=== PATIENT | male | born 1955 | race Caucasian/White ===

== ENCOUNTER → 2016-12-08 | Outpatient (CLI) | payer OTHER ==
[~2016-12-08] MED LIST: ACET-749 PO; CICL160A INH; DOCU-94 PO; DOCU100C31 PO; DXM1 PO; EMOL-31 TOP; ENOX120I SQ; FLUC200T PO; INSHRIE SQ; IPRA1AER2 INH; IPRASOL4 INH; LPR25 PO; MCRK20 PO; MELATAB2 PO; MELO15TA10 PO; MELO7.5T5 PO; MRLP17 PO; ONDA4TAB46 PO; ONDA8TAB6 PO; OXYC1TAB3 PO; PRED10TA PO; PRED20TA PO; PRLSR20 PO; PROM1TAB6 PO; VNTHFA/IN INH; WARF4TAB8 PO; WARF5TAB7 PO; WARF7.5T PO
--- NOTE | 2016-12-09 19:56 | DIAGNOSTIC IMAGING REPORT ---
PET/CT CLINICAL HISTORY: Malignant neoplasm of the lung. TECHNIQUE: A PET/CT was performed from the skull base through the upper thighs following intravenous injection of 11.8 mCi of F 18 FDG IV. The injection was performed at 9:29 AM on December 08, 2016 and imaging began at 10:26 AM on December 08, 2016. Unenhanced CT was performed for attenuation correction purposes and anatomic localization. COMPARISON STUDY: Chest CT March or 2016. FINDINGS: Head and neck: Note is made of a 7 mm extra-axial hyperdense lesion along the left aspect of the falx shown on image 9. No enlarged cervical lymph nodes are present. Note is made of focal moderate to marked FDG uptake within the right thyroid lobe with an SUV max of 5.9. This corresponds to a nodule measuring approximately 1.3 cm. There is a peripherally calcified nodule within the right thyroid lobe as well. Chest: Note is made of a left upper lobe perihilar mass that measures 5.7 x 4.4 cm. This mass has marked FDG uptake with an SUV max of 7.9. This mass occludes the left upper lobe bronchus and significantly narrows or occludes the lingular bronchus. Mass encases the left lower lobe pulmonary artery as well as portions of the upper lobe pulmonary artery, better assessed on prior contrast enhanced CT. The mass extends to within approximately 2.3 cm of the addi. Note is made of several pathologic AP window lymph nodes, the largest of which measures 2.8 x 1.7 cm. This node has an SUV max of 6. A left prevascular node measuring 2.2 x 0.9 cm has an SUV max of 3.9 and is also consistent with analilia spread of disease. Moderate emphysema is noted. There is left upper lobe volume loss with hazy opacity. A 5 mm subpleural nodule within the right middle lobe is shown on image 127. There is also a 3 mm subpleural nodule within the right lower lobe shown on image 148. These nodules are likely benign. There are 2 small for evaluation by PET/CT. Abdomen and Pelvis: A 1.3 cm right adrenal nodule has an SUV max of 3.9. There is minimal FDG uptake within the left adrenal gland with an SUV max of 2.3. There is slight nodularity of the left adrenal gland. No additional suspicious FDG uptake is identified within the abdomen or the pelvis. No enlarged lymph nodes are present. Musculoskeletal: No suspicious skeletal uptake is identified. IMPRESSION: 1. Marked FDG uptake within the 5.7 x 4.4 cm left upper lobe perihilar mass which occludes the left upper lobe bronchus and bows the major fissure. Mass extends to within 2.3 cm of the addi and is consistent with a primary bronchogenic carcinoma. 2. Moderate to marked FDG uptake within several aortopulmonary window and left perihilar lymph nodes consistent with analilia spread of disease. 3. Mild FDG uptake within a 1.3 cm right adrenal nodule with an SUV max of 3.9. This finding is indeterminate. This degree of FDG uptake is greater than expected for an adenoma although this remains within the differential. Considerations include metastatic disease and an adrenal adenoma. 4. Moderate FDG uptake with a right lobe thyroid nodule. This can be assessed with a follow-up thyroid ultrasound. 5. 7 mm hyperdense extra-axial left parafalcine lesion which likely reflects a small meningioma. Electronically signed by: Jose Hess M.D. 12/09/2016 7:55 PM Dictated Date/Time: 12/08/2016 11:31 AM
== END | disposition home or self-care (01) ==
LOC: EDBD → C.PET 08:43 → EDBD 08:43
DX: R91.8 Other nonspecific abnormal finding of lung field (principal); R93.8 Abnormal findings on diagnostic imaging of other specified body structures; E04.1 Nontoxic single thyroid nodule; G93.9 Disorder of brain, unspecified

== ENCOUNTER 2016-12-17 08:43 | Day surgery (SDC) | payer OTHER ==
--- NOTE | 2016-12-16 09:49 | PAT Medication Instructions ---
Service Date Dec 16, 2016. Current Home Medication List Albuterol Hfa (Ventolin Hfa), 2 PUFFS INH QID PRN for RN Ciclesonide (Alvesco), 1 PUFF INH BID Docusate Sodium (Docusate Sodium), 1 CAP PO BID Ipratropium-Albuterol (Combivent Respimat), 1 PUFFS INH QID PRN for PRN Meloxicam (Mobic), 15 MG PO BID Medication Instructions For Your Scheduled Surgery Meloxicam (Mobic), 15 MG PO BID (check/per with surgeon for instructions) - Hold the following medications the morning of surgery: Docusate Sodium (Docusate Sodium), 1 CAP PO BID - Take the following medications the morning of surgery with a sip of water: Ipratropium-Albuterol (Combivent Respimat), 1 PUFFS INH QID PRN for PRN (if needed) Ciclesonide (Alvesco), 1 PUFF INH BID Albuterol Hfa (Ventolin Hfa), 2 PUFFS INH QID PRN for RN (if needed and bring with patient to hospital on day of surgery) - Take the following medications as scheduled the night before surgery: Ipratropium-Albuterol (Combivent Respimat), 1 PUFFS INH QID PRN for PRN (if needed) Docusate Sodium (Docusate Sodium), 1 CAP PO BID Ciclesonide (Alvesco), 1 PUFF INH BID Albuterol Hfa (Ventolin Hfa), 2 PUFFS INH QID PRN for RN (if needed) If you have any questions please call us at [phone] or [phone] ( [place]) or [phone]
[2016-12-16 12:54] VITALS: BMI 27.0
[~2016-12-17] VITALS: Ht 182.9 cm; Wt 90.9 kg
[~2016-12-17 08:43] MED LIST changes: -ACET-749 PO; +CLINDAMYCIN PHOS 150 MG/ML 2 ML VIAL ONE; -DOCU-94 PO; -DXM1 PO; -EMOL-31 TOP; -ENOX120I SQ; -FLUC200T PO; -INSHRIE SQ; -IPRASOL4 INH; +LACTATED RINGER'S 1000ML 1,000 ML IV SCH; -LPR25 PO; -MCRK20 PO; -MELATAB2 PO; -MELO15TA10 PO; +MIDAZOLAM HCL 1 MG/ML 2ML VIAL ONE; -MRLP17 PO; -ONDA4TAB46 PO; -ONDA8TAB6 PO; -OXYC1TAB3 PO; -PRED10TA PO; -PRED20TA PO; -PRLSR20 PO; -PROM1TAB6 PO; -WARF4TAB8 PO; -WARF5TAB7 PO; -WARF7.5T PO
[2016-12-17 09:10] VITALS: BP 125/89; PULSE 99; TEMP 36.7; O2SAT 99; Ht 182.9 cm; Wt 90.9 kg
[2016-12-17] MEDS ORDERED: LABETALOL HCL IV 5 MG/ML 20ML IV PRN (09:15)
[2016-12-17] MEDS ORDERED: ONDANSETRON INJ 2 MG/ML 2 ML VIAL IV PRN (09:15)
[2016-12-17] MEDS ORDERED: MEPERIDINE HCL 25 MG/ML CARP IV PRN (09:15)
[2016-12-17] MEDS ORDERED: PHENYLEPHRINE 100MCG/ML 5ML SYR IV PRN (09:15)
[2016-12-17] MEDS ORDERED: EpHEDrine SULFATE INJ 50 MG/ML AMP IV PRN (09:15)
[2016-12-17] MEDS ORDERED: ATROPINE SULFATE 0.1 MG/ML 5ML SYR IV PRN (09:15)
[2016-12-17] MEDS ORDERED: FLUMAZENIL 0.1 MG/1 ML 10 ML VIAL IV PRN (09:15)
[2016-12-17] MEDS ORDERED: NALOXONE HCL 0.4 MG/1 ML VIAL/CARP IV PRN (09:15)
[2016-12-17] MEDS ORDERED: HYDROmorphone INJ 2 MG/ML SYR/VIAL IV PRN (09:15)
[2016-12-17] MEDS ORDERED: CLINDAMYCIN IV 900 MG in DEXTROSE 5% ADD-VANTAGE 100ML 100 ML IV SCH (10:00)
--- NOTE | 2016-12-17 10:29 | Discharge Instructions ---
Discharge Instructions Visit Reason for Visit: Lung Mass, Hx Lung Cancer Discharge Discharge Diagnosis / Problem: Lung Mass, Discharge Goals Goal(s): Learn about illness Activity Recommendations Activity Limitations: resume your previous activity (in 24 hours) Lifting Limitations: none Anesthesia . Post Anesthesia Instructions: If you have had General Anesthesia or IV Sedation: * Do not drive today. * Resume driving when surgeon permits. * Do not make important decisions or sign legal documents today. * Call surgeon for: 1. Temperature elevations greater than 101 degrees F. 2. Uncontrollable pain. 3. Excessive bleeding. 4. Persistent nausea and vomiting. 5. Medication intolerance (nausea, vomiting or rash). * For nausea and vomiting use only clear liquids such as: tea, soda, bouillon until nausea subsides, then gradually increase diet as tolerated. * If you have any concerns or questions, call your surgeon's office. If physician is unavailable and it is an emergency, call 911 or go to the nearest emergency room. . Instructions / Follow-Up Instructions / Follow-Up 1. You may cough up some blood. Call physician if excessive amount noted. 2. Dr. Caicedo will call to discuss your pathology results and further treatment plan. Diet Recommendations Recommended Home Diet: resume previous diet Pending Studies Studies pending at discharge: no Medical Emergencies . Who to Call and When: Medical Emergencies: If at any time you feel your situation is an emergency, please call 911 immediately. . Non-Emergent Contact Non-Emergency issues call your: Surgeon Call Non-Emergent contact if: you have a fever, your pain is not controlled . . "Provider Documentation" section prepared by Tunde Mohamud.
[2016-12-17] MEDS ORDERED: FENTANYL CITRATE INJ 50 MCG/1 ML 2 ML VIAL ONE (11:23)
[2016-12-17] MEDS ORDERED: NEOSTIGMINE METHYLSULFATE 5 MG/5 ML SYR ONE (12:05)
[2016-12-17] MEDS ORDERED: GLYCOPYRROLATE INJ 0.2 MG/ML VIAL ONE ×2 (12:05)
[2016-12-17] MEDS ORDERED: LIDOCAINE HCL 2% 2 ML VIAL (20MG/ML) ONE (12:05)
[2016-12-17] MEDS ORDERED: ROCURONIUM BROMIDE 10 MG/ML 5 ML VIAL ONE (12:05)
[2016-12-17] MEDS ORDERED: ONDANSETRON INJ 2 MG/ML 2 ML VIAL ONE (12:05)
[2016-12-17] MEDS ORDERED: SUCCINYLCHOLINE CHLORIDE 20 MG/ML 10 ML VIAL IV ONE (12:05)
[2016-12-17] MEDS ORDERED: PROPOFOL IV EMULSION 10 MG/ML 20 ML VIAL IV ONE (12:05)
[2016-12-17] MEDS ORDERED: DEXAMETHASONE SOD INJ 4 MG/ML VIAL ONE ×2 (12:05)
[2016-12-17] MEDS ORDERED: PHENYLEPHRINE HCL INJ 10 MG/ML VIAL ONE (12:27)
[2016-12-17] MEDS ORDERED: ALBUTEROL 0.083% NEBU SOLN 3 ML VIAL INH STA (12:52)
[2016-12-17] MEDS: FENTANYL CITRATE INJ 50 MCG/1 ML 2 ML VIAL IV PRN ×2 (12:53→12:58)
--- NOTE | 2016-12-17 13:01 | DIAGNOSTIC IMAGING REPORT ---
CHEST ONE VIEW PORTABLE CLINICAL HISTORY: Pulmonary mass. Status post fiberoptic bronchoscopy and biopsy COMPARISON STUDY: PET/CT scan dated 12/08/2016 FINDINGS: The heart is normal in size. There is a left hilar mass with possible left upper lobe collapse. There is no pneumothorax. The right lung is generally clear.[ IMPRESSION: Left hilar/mediastinal mass with possible left upper lobe collapse. No evidence of pneumothorax. Electronically signed by: Juanpablo Spence M.D. 12/17/2016 12:59 PM Dictated Date/Time: 12/17/2016 12:58 PM
--- NOTE | 2016-12-17 13:15 | Anesthesiology Progress Note ---
Anesthesia Post Op Note Date & Time Dec 17, 2016 at 13:15 Vital Signs Pain Intensity: 0 Vital Signs Past 12 Hours Date Time Temp Pulse Resp B/P Pulse Ox O2 Delivery O2 Flow Rate FiO2 12/17/16 13:05 90 18 124/77 97 Mask 10 12/17/16 12:55 98 15 110/87 99 Mask 10 12/17/16 12:45 103 15 129/87 99 Mask 10 12/17/16 12:37 36.0 98 16 124/87 98 Mask 10 12/17/16 09:10 36.7 99 18 125/89 99 Room Air Notes Mental Status: alert / awake / arousable, participated in evaluation Pt Amnestic to Procedure: Yes Nausea / Vomiting: adequately controlled Pain: adequately controlled Airway Patency, RR, SpO2: stable & adequate BP & HR: stable & adequate Hydration State: stable & adequate Anesthetic Complications: no major complications apparent
[2016-12-17 13:29] VITALS: PULSE 93; O2SAT 90
[2016-12-17 13:40] VITALS: BP 119/74; PULSE 97; TEMP 37.5; O2SAT 93
[2016-12-17 14:10] VITALS: BP 111/74; PULSE 95; TEMP 37; O2SAT 93
[2016-12-17 14:39] VITALS: BP 132/74; PULSE 93; TEMP 37; O2SAT 93
--- NOTE | 2016-12-17 14:57 | OPERATIVE REPORT ---
DATE OF OPERATION: 12/17/2016 PREOPERATIVE DIAGNOSIS: Left hilar mass. POSTOPERATIVE DIAGNOSIS: Carcinoma, left lung. SURGEON: Shan Caicedo MD DUDE WRANGLER: RICHARD Shirley PROCEDURES: 1. Endobronchial ultrasound with biopsy. 2. Fiberoptic bronchoscopy with biopsy. ANESTHESIA: General anesthesia endotracheal intubation. INDICATION FOR PROCEDURE AND FINDINGS: Mr. Gordon is a 61-year-old incarcerated male who had a long history of cigarette smoking and quit about 14 months ago. The patient presented with pneumonia about 3 months ago and underwent 2 course of antibiotics and improved. Then he came back with persistent dyspnea on exertion and underwent a CT scan and was found to have a large left hilar mass. We did a workup on him including a PET scan, which was hypermetabolic. It suggested some left peribronchial nodes. An MRI of his brain showed multiple metastases. We are in need of a tissue biopsy. On 12/17/2016, the patient underwent an uncomplicated endobronchial ultrasound with biopsy. It is unclear whether we are dealing with a nonsmall cell lung carcinoma or a small cell lung carcinoma. I biopsied level 4 nodes and biopsied the mass several times. He had very little in the way of any lymphadenopathy in the level 7 or in the right peritracheal nodes. We did multiple biopsies and it appears that we are dealing with a stage IV carcinoma of the lung. DESCRIPTION OF PROCEDURE: The patient brought to the operating room and laid in supine position. General anesthesia induced and endotracheal intubation was performed. Appropriate timeout had been called and prophylactic antibiotics had been given, the endobronchial ultrasound probe was placed. We had been going down with the knowledge that we from a recent MRI of the brain, we felt we were dealing with stage IV disease, but we needed tissue. I went down and biopsied the left level 4 area, left level 10 area and initially, we did not get a diagnosis. We did get lymphocytes. I then was in the mass itself and did several needle sticks under ultrasound guidance, so we came back with what appeared to be initially perhaps a small cell lung carcinoma. I sent back several biopsies and Dr. Wei Thomas from pathology felt that we saw plenty of tumors and asked to be put these in the cell blocks, so we could do immunohistochemical and perhaps molecular analysis. I did about 8 separate sticks into the mass and put these in formalin. I then removed the endobronchial ultrasound probe and placed the regular fiberoptic bronchoscope. I went down and I irrigated everything out and while there had been some oozing from the bleeding, this had stopped. There did appear to be involvement of the left upper lobe bronchus, which was not surprising. I ended up doing multiple biopsies with forceps in this area. I also did a needle biopsy in this area. We had really no bleeding. At this point, we felt we had enough material and I irrigated out both lung johnson. I did not see any other endobronchial lesions in the left lower lobe bronchus or the right mainstem bronchus, the origin of the right middle lobe, right lower lobe or the right upper lobe. There were no tracheal abnormalities. Eventually, I removed the bronchoscope. He tolerated it well and was extubated in the room. I attest to the content of the Intraoperative Record and any orders documented therein. Any exceptio ns are noted below.
--- NOTE | 2016-12-17 15:51 | PULMONARY FUNCTION TEST ---
PULMONARY FUNCTION TEST Spirometry suggests moderately severe obstructive ventilatory disease. Lung volumes within normal limits. Diffusion capacity. DLCO noted mildly decreased. MTDD
[2017-01-05] MEDS ORDERED: PRED20TA PO (14:19)
[2017-01-05] MEDS ORDERED: DOCU-94 PO (14:19)
[2017-01-06] MEDS ORDERED: PRLSR20 PO (12:50)
[2017-01-06] MEDS ORDERED: FLUC200T PO (12:50)
[2017-07-05] MEDS ORDERED: MRLP17 PO (08:51)
[2017-07-05] MEDS ORDERED: LPR25 PO (08:51)
[2017-07-05] MEDS ORDERED: DXM1 PO (08:51)
[2017-07-05] MEDS ORDERED: MCRK20 PO (08:51)
== END 2016-12-17 15:00 | disposition home or self-care (01) ==
LOC: EDBD → C.ACU 08:43
PROVIDERS: ATTEND Surgery
DX: C34.92 Malignant neoplasm of unspecified part of left bronchus or lung (principal); C7A.8 Other malignant neuroendocrine tumors; J45.909 Unspecified asthma, uncomplicated; J44.9 Chronic obstructive pulmonary disease, unspecified; Z86.19 Personal history of other infectious and parasitic diseases; M19.90 Unspecified osteoarthritis, unspecified site; Z87.891 Personal history of nicotine dependence; Z68.27 Body mass index [BMI] 27.0-27.9, adult; Z98.890 Other specified postprocedural states

== ENCOUNTER 2017-01-19 06:51 | Day surgery (SDC) | payer OTHER ==
[2017-01-13 14:37] VITALS: BMI 27.0
[~2017-01-19] VITALS: Ht 177.8 cm; Wt 89.5 kg
[~2017-01-19 06:51] MED LIST changes: +CEFAZOLIN 2000 MG/60 ML D5W IV SCH; -CLINDAMYCIN PHOS 150 MG/ML 2 ML VIAL ONE; +DOCU-94 PO; -DOCU100C31 PO; -IPRA1AER2 INH; -MELO7.5T5 PO; -MIDAZOLAM HCL 1 MG/ML 2ML VIAL ONE
--- NOTE | 2017-01-19 07:03 | History and Physical ---
History & Physical Date Jan 19, 2017. History of Present Illness The patient is a 61 year old male with history of Lt lung cancer with brain mets for access port. For chemotherapy/ probable radiation. Past Medical/Surgical History Medical Problems: (1) Small cell lung carcinoma Additional History Hepatic Disease: Yes (h/o Hep C) Endocrine Disorder: No Kidney Disease: No Allergies Coded Allergies: No Known Allergies (Unverified , 01/19/17) Home Medications Scheduled Ciclesonide (Alvesco), 1 PUFF INH BID Melatonin (Melatonin Maximum Strengt), 1 TAB PO HS Meloxicam (Mobic), 15 MG PO DAILY Omeprazole (Prilosec), 20 MG PO DAILY Prednisone Tab (Prednisone), 40 MG PO BID Scheduled PRN Albuterol Hfa (Ventolin Hfa), 2 PUFFS INH QID PRN for RN Docusate Sodium (Colace), 1 CAP PO BID PRN for Constipation Physical Examination Skin: warm/dry Eyes: sclerae normal Head: atraumatic Neck: supple Respiratory/Chest: no respiratory distress Cardiovascular: regular rate, rhythm Abdomen / GI: non tender Extremities: normal inspection Neurologic/Psych: alert Diagnosis Lt Lung Cancer with brain metastasis Plan of Treatment For access port
[2017-01-19] MEDS ORDERED: PRLSR20 PO (07:17)
[2017-01-19] MEDS ORDERED: MELO7.5T5 PO (07:17)
[2017-01-19] MEDS ORDERED: PRED10TA PO (07:17)
[2017-01-19] MEDS ORDERED: MELATAB2 PO (07:17)
[2017-01-19 07:18] VITALS: BP 138/99; PULSE 81; TEMP 36.7; O2SAT 95; Ht 177.8 cm; Wt 89.5 kg
[2017-01-19] MEDS ORDERED: FENTANYL CITRATE INJ 50 MCG/1 ML 2 ML VIAL ONE (08:08)
[2017-01-19] MEDS ORDERED: MIDAZOLAM HCL 1 MG/ML 2ML VIAL ONE (08:08)
[2017-01-19] MEDS ORDERED: LIDOCAINE HCL 2% 2 ML VIAL (20MG/ML) ONE (08:12)
[2017-01-19] MEDS ORDERED: PROPOFOL IV EMULSION 10 MG/ML 20 ML VIAL IV ONE (08:12)
[2017-01-19] MEDS ORDERED: HEPARIN SOD (PORCINE) 1000 UNIT/ML 10 ML VIAL ONE (08:14)
[2017-01-19] MEDS ORDERED: LIDOCAINE HCL 1% 20 ML VIAL ONE ×2 (08:14→08:21)
[2017-01-19] MEDS ORDERED: CEFAZOLIN SOD 1 GM VIAL ONE (08:14)
[2017-01-19] MEDS ORDERED: THROMBIN FOR SOLN 20000 UNIT KIT ONE (08:14)
[2017-01-19] MEDS ORDERED: ATROPINE SULFATE 0.1 MG/ML 5ML SYR IV PRN (08:45)
[2017-01-19] MEDS ORDERED: EpHEDrine SULFATE INJ 50 MG/ML AMP IV PRN (08:45)
[2017-01-19] MEDS ORDERED: FENTANYL CITRATE INJ 50 MCG/1 ML 2 ML VIAL IV PRN (08:45)
[2017-01-19] MEDS ORDERED: ONDANSETRON INJ 2 MG/ML 2 ML VIAL IV PRN ×3 (08:45→09:45)
[2017-01-19] MEDS ORDERED: PROMETHAZINE HCL INJ 6.25 MG in SODIUM CHLORIDE 0.9% 50ML 50 ML IV PRN (08:45)
[2017-01-19] MEDS ORDERED: ACET-749 PO (09:14)
--- NOTE | 2017-01-19 09:16 | Discharge Instructions ---
Discharge Instructions Date of Service Jan 19, 2017. Visit Reason for Visit: Small Cell Lung Cancer Discharge Discharge Diagnosis / Problem: A-port placement Discharge Goals Goal(s): Improve disease control Activity Recommendations Activity Limitations: as noted below Shower/Bathe: keep incision dry (for 2 days) Anesthesia . Post Anesthesia Instructions: If you have had General Anesthesia or IV Sedation: * Do not drive today. * Resume driving when surgeon permits. * Do not make important decisions or sign legal documents today. * Call surgeon for: 1. Temperature elevations greater than 101 degrees F. 2. Uncontrollable pain. 3. Excessive bleeding. 4. Persistent nausea and vomiting. 5. Medication intolerance (nausea, vomiting or rash). * For nausea and vomiting use only clear liquids such as: tea, soda, bouillon until nausea subsides, then gradually increase diet as tolerated. * If you have any concerns or questions, call your surgeon's office. If physician is unavailable and it is an emergency, call 911 or go to the nearest emergency room. . Instructions / Follow-Up Instructions / Follow-Up Skin sutures can be removed in two weeks, call Dr. Stockton's office to schedule if needed, [phone] Diet Recommendations Recommended Home Diet: no limitations Pending Studies Studies pending at discharge: no Medical Emergencies . Who to Call and When: Medical Emergencies: If at any time you feel your situation is an emergency, please call 911 immediately. . Non-Emergent Contact Non-Emergency issues call your: Surgeon Call Non-Emergent contact if: you have a fever, temperature is above 101.5, wound has increased redness . . "Provider Documentation" section prepared by Frandy Tabares.
[2017-01-19] MEDS ORDERED: LACTATED RINGER'S 1000ML 1,000 ML IV SCH (09:32)
--- NOTE | 2017-01-19 09:38 | [facility] Post Operative Brief Note ---
Immediate Operative Summary Operative Date Jan 19, 2017. Pre-Operative Diagnosis Small Cell Lung Cancer Post-Operative Diagnosis Same as preoperative Procedure(s) Performed Infusaport Insertion, Left Internal Jugular Surgeon Dr. Mikey Stockton Stock Hanger Surgeon(s) None per surgeon Estimated Blood Loss 10ml Findings placed via Lt int jugular vein Specimens None per surgeon Anesthesia local/ sedation Complication(s) None Disposition Recovery Room / PACU
[2017-01-19] MEDS ORDERED: MoRPHine SULFATE 2 MG/ML CARP IV PRN (09:45)
[2017-01-19] MEDS ORDERED: HYDROCODONE/ACETAMOPHEN 5/325MG TAB PO PRN ×3 (09:45)
--- NOTE | 2017-01-19 10:15 | Anesthesiology Progress Note ---
Anesthesia Post Op Note Date & Time Jan 19, 2017 at 10:15 Vital Signs Pain Intensity: 0 Vital Signs Past 12 Hours Date Time Temp Pulse Resp B/P Pulse Ox O2 Delivery O2 Flow Rate FiO2 01/19/17 10:00 71 19 147/92 99 Mask 10 01/19/17 09:50 83 19 155/101 99 Mask 10 01/19/17 09:41 36.7 86 16 145/81 99 Mask 10 01/19/17 07:18 36.7 81 18 138/99 95 Room Air Notes Mental Status: alert / awake / arousable, participated in evaluation Pt Amnestic to Procedure: Yes Nausea / Vomiting: adequately controlled Pain: adequately controlled Airway Patency, RR, SpO2: stable & adequate BP & HR: stable & adequate Hydration State: stable & adequate Anesthetic Complications: no major complications apparent
--- NOTE | 2017-01-19 10:19 | DIAGNOSTIC IMAGING REPORT ---
SINGLE VIEW CHEST CLINICAL HISTORY: Infusion port placement. FINDINGS: An AP, portable, upright chest radiograph is compared to study dated 12/17/2016 and correlated with chest CT dated 11/17/2016. A left internal jugular central venous infusion port is new from previous. The cardiomediastinal silhouette is unremarkable. Emphysema and chronic interstitial thickening is similar to previous. A left perihilar lung mass has not appreciably changed. This measures at least 6 cm. There is no evidence of airspace consolidation or pleural effusion. No pneumothorax is seen. The bony thorax is grossly intact. IMPRESSION: 1. A left internal jugular central venous infusion port is new from previous. No pneumothorax is identified post procedure. 2. Emphysema and a left perihilar lung mass are similar to previous. 3. There is no airspace consolidation typical for pneumonia or pleural effusion. Electronically signed by: Morris Arreola M.D. 01/19/2017 10:17 AM Dictated Date/Time: 01/19/2017 10:16 AM
[2017-01-19 10:30] VITALS: BP 133/84; PULSE 87; TEMP 36.7; O2SAT 96
[2017-01-19 11:00] VITALS: BP 133/84; PULSE 93; TEMP 36.7; O2SAT 97
--- NOTE | 2017-01-19 12:38 | OPERATIVE REPORT ---
DATE OF OPERATION: 01/19/2017 NAME OF OPERATION: Access port placement. PREOPERATIVE DIAGNOSIS: Lung cancer. POSTOPERATIVE DIAGNOSIS: Same. STAFF SURGEON: Dr. Mikey Stockton. ANESTHESIA: 1% plain lidocaine with sedation. PROCEDURE: The patient was brought into the operating room and placed on the operating table in supine position. A roll was placed between his shoulders. His neck and chest were prepped and draped in usual fashion. After appropriate sedation, using 1% plain lidocaine, skin and subcutaneous tissue over the left deltopectoral groove were anesthetized. Incision made carrying dissection down identifying the cephalic vein, which was too small to use for catheter placement. It was ligated. At this point, I attempted Trendelenburg position with puncture of the left subclavian vein. I was unable to localize the vein adequately; therefore, in Trendelenburg position, I was able to localize the left jugular vein. The catheter was brought up between the 2 incisions. A small incision was made in the neck using 1% plain lidocaine. The dilator and introducer were then passed over the wire, which had been placed in the internal jugular vein under fluoroscopy. The dilator and wire removed. The catheter was then passed down through the introducer. The introducer removed. The catheter then positioned appropriately, aspirated and flushed with heparinized solution. A pocket was fashioned in the chest wall. The catheter attached to the port. Port placed into the pocket and secured to the chest wall using 3-0 Prolene suture. The port was aspirated and flushed with heparinized solution. The port site was irrigated with antibiotic solution. Subcutaneous tissue was reapproximated using 2-0 chromic catgut suture and then the skin reapproximated using 4-0 nylon suture. The patient was transferred to recovery room in stable condition. I attest to the content of the Intraoperative Record and any orders documented therein. Any exceptio ns are noted below.
[2017-07-05] MEDS ORDERED: MCRK20 PO (08:51)
[2017-07-05] MEDS ORDERED: DXM1 PO (08:51)
[2017-07-05] MEDS ORDERED: MRLP17 PO (08:51)
[2017-07-05] MEDS ORDERED: LPR25 PO (08:51)
== END 2017-01-19 11:20 | disposition home or self-care (01) ==
LOC: EDBD → C.ACU 06:51
PROVIDERS: ATTEND Surgery
DX: C34.90 Malignant neoplasm of unspecified part of unspecified bronchus or lung (principal); C79.31 Secondary malignant neoplasm of brain

== ENCOUNTER → 2017-01-27 | Outpatient (CLI) | payer OTHER ==
[~2017-01-27] MED LIST changes: +ACET-749 PO; -CEFAZOLIN 2000 MG/60 ML D5W IV SCH; +DXM1 PO; +EMOL-31 TOP; +ENOX120I SQ; +INSHRIE SQ; +IPRASOL4 INH; -LACTATED RINGER'S 1000ML 1,000 ML IV SCH; +LPR25 PO; +MCRK20 PO; +MELATAB2 PO; +MELO15TA10 PO; +MELO7.5T5 PO; +MRLP17 PO; +ONDA4TAB46 PO; +ONDA8TAB6 PO; +OXYC1TAB3 PO; +PRED10TA PO; +PRLSR20 PO; +PROM1TAB6 PO; +WARF4TAB8 PO; +WARF5TAB7 PO; +WARF7.5T PO
[2017-01-27 07:59] LABS: BLOOD UREA NITROGEN 28 mg/dl (7-18); BUN/CREATININE RATIO 34.5 (10-20); CALCIUM 8.3 mg/dl (8.5-10.1); CARBON DIOXIDE 25 mmol/L (21-32); CHLORIDE 102 mmol/L (98-107); GLUCOSE 233 mg/dl (70-99); POTASSIUM 4.6 mmol/L (3.5-5.1)
[2017-01-27 08:13] LABS: SODIUM 136 mmol/L (136-145)
== END | disposition home or self-care (01) ==
LOC: EDBD → C.LABSPEC 07:42
PROVIDERS: ATTEND Physician Assistant Medical
DX: Z01.89 Encounter for other specified special examinations (principal)

== ENCOUNTER 2017-02-24 10:57 | Observation (INO) | payer OTHER ==
[~2017-02-24] VITALS: Ht 182.9 cm; Wt 82.1 kg
[~2017-02-24 10:57] MED LIST changes: -DXM1 PO; -EMOL-31 TOP; -ENOX120I SQ; -INSHRIE SQ; -IPRASOL4 INH; -LPR25 PO; -MCRK20 PO; -MELO15TA10 PO; -MRLP17 PO; -ONDA4TAB46 PO; -ONDA8TAB6 PO; -OXYC1TAB3 PO; -PROM1TAB6 PO; -WARF4TAB8 PO; -WARF5TAB7 PO; -WARF7.5T PO
[2017-02-24] MEDS ORDERED: INSHRIE SQ (11:32)
[2017-02-24] MEDS ORDERED: IPRASOL4 INH (11:32)
[2017-02-24 12:11] LABS: BASO % 0.3 %; BASO ABS # 0.02 K/uL (0-0.2); COMPLETE YES; EOS % 0.1 %; IG% 0.6 %; LYMPH ABS # 1.89 K/uL (1.2-3.4); MEAN CORPUSCULAR HEMOGLOBIN 31.5 pg (25-34); MEAN CORPUSCULAR HGB CONC 35.8 g/dl (32-36); MEAN PLATELET VOLUME 9.5 fL (7.4-10.4); MONO % 1.9 %; NEUT % 69.1 %; PLATELET COUNT 217 K/uL (130-400); RED BLOOD COUNT 3.75 M/uL (4.7-6.1); WHITE BLOOD COUNT 6.74 K/uL (4.8-10.8)
--- NOTE | 2017-02-24 12:17 | DIAGNOSTIC IMAGING REPORT ---
CHEST ONE VIEW PORTABLE CLINICAL HISTORY: eval for pnea dyspnea COMPARISON STUDY: 01/19/2017 FINDINGS: Considerable improvement in the patient's left perihilar lung mass. Central catheter in superior vena cava. Lungs otherwise are generally clear. Chronic bibasilar interstitial prominence is noted. IMPRESSION: Improved exam with no acute process on the current study. Electronically signed by: See Garcia M.D. 02/24/2017 12:15 PM Dictated Date/Time: 02/24/2017 12:14 PM
[2017-02-24 12:20] LABS: BUN/CREATININE RATIO 14.7 (10-20); CALCIUM 9.1 mg/dl (8.5-10.1); CREATININE 0.88 mg/dl (0.60-1.40); INR 0.9 (0.9-1.1); PARTIAL THROMBOPLASTIN RATIO 0.9
[2017-02-24 12:21] LABS: POINT OF CARE TROPONIN I 0.01 ng/ml (0-0.045)
[2017-02-24] MEDS ORDERED: OPTIRAY 320 IV PRN (13:00)
--- NOTE | 2017-02-24 13:43 | DIAGNOSTIC IMAGING REPORT ---
CT ANGIOGRAM OF THE CHEST CLINICAL HISTORY: Lung carcinoma. Shortness of breath. COMPARISON STUDY: Chest x-ray dated 03-11, outside chest CT dated 11/17/2016 TECHNIQUE: Following the IV administration of 92 mL of Optiray-320, CT angiogram of the thorax was performed from the thoracic inlet to the lung bases utilizing the pulmonary embolus protocol. Images are reviewed in the axial, sagittal, and coronal planes. IV contrast was administered without complication. MIP imaging was performed. CT DOSE: 425.01 mGy.cm FINDINGS: There is new right adrenal gland thickening. There is a 12 mm there is mild left hilar adenopathy. There was no evidence of thoracic aortic dilatation. There is a small right lower lobe pulmonary artery filling defect indicative of an acute embolus. No pleural effusions are visualized. There is pulmonary emphysema. There is been interval decrease in the size of the left perihilar mass which encases the left upper lobe pulmonary artery. This currently measures 3 cm in diameter. There are left para mediastinal atelectatic changes. There is a stable 5 mm subpleural right middle lobe pulmonary nodule. IMPRESSION: 1. Small acute right lower lobe pulmonary embolus 2. Interval decrease in the size of the left perihilar mass 3. Interval development of right adrenal gland thickening Electronically signed by: Juanpablo Spence M.D. 02/24/2017 1:42 PM Dictated Date/Time: 02/24/2017 1:34 PM
[2017-02-24] MEDS ORDERED: ALBUTEROL HFA 8 GM INHALER INH PRN (14:45)
[2017-02-24] MEDS ORDERED: ACETAMINOPHEN 325 MG TAB PO PRN (14:45)
[2017-02-24] MEDS ORDERED: MAGNESIUM HYDROXIDE SUSP 30 ML UDC PO PRN (14:45)
[2017-02-24] MEDS ORDERED: DOCUSATE SODIUM 100 MG CAP PO PRN (14:45)
[2017-02-24] MEDS ORDERED: POLYETHYLENE (MIRALAX) 17 GM PACK PO PRN (14:45)
[2017-02-24] MEDS ORDERED: ALUMINUM/MAGNESIUM/SIMETH (MAALOX MAX) 30 ML UDC PO PRN (14:45)
[2017-02-24] MEDS ORDERED: IV FLUIDS COMPLETED PRN (15:30)
[2017-02-24 16:22] VITALS: BP 137/91; PULSE 115; TEMP 36.3; O2SAT 99
--- NOTE | 2017-02-24 16:53 | EMERGENCY ROOM VISIT NOTE ---
History Report prepared by Alfonso: Elsi Lui Under the Supervision of: Dr. Jeremy Quinonez M.D. First contact with patient: 11:23 Chief Complaint: CHEST PAIN Stated Complaint: CHEST PAIN Nursing Triage Summary: Patient arrives via ALS from [facility] with complaints of intermittent chest pain. 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 Last radiation was 4-5 weeks ago. Patient was tappered off oral prednisone and was discontinued on 02/15/17. Patient complaining of SOB, CP rating 6-8/10, fatigue, dizzy. EMS reported initial BP was 60's/40's, no nitro/aspirin admin by ems. Patient unable to take aspirin due to it makes stomach upset. History of Present Illness The patient is a 61 year old male who presents to the Emergency Room via ALS from [facility] with complaints of intermittent chest pain that began on February 15. He currently rates his discomfort as a 6/10 in severity. The patient states that he is currently undergoing treatment for small cell lung cancer with mets to his brain. He states that his chest pain is located in the middle of his chest and around his diaphragm, describing his discomfort as a pressure. The patient additionally associates shortness of breath with his symptoms, and notes that for the past few days he has had an "upset stomach." He states that he has had this happen in the past when he was tapered off Prednisone. The patient states that his Prednisone was stopped on 02/15 and that is when his pain began. He notes that intermittently he has experienced pain in his calves, noting that they lock up. The patient denies any swelling in his legs. He states that he has been feeling weak and fatigued, noting a lack of energy. The patient states that typically the Prednisone has helped to alleviate his pain. He states that he was diagnosed with the cancer in October , noting that his mass is 5.5-6 cm in diameter in his lung. The patient denies any history of PEs or hypertension. He states that he has been treated for hyperglycemia due to his prednisone use. EMS reports that the patient's initial blood pressure was in 60 mmHg. Source of History: patient Onset: February 15 Position: chest Symptom Intensity: 6/10 Quality: pressure Timing: intermittent Associated Symptoms: + SOB Note: Associated Symptoms: "upset stomach," calves locking up Review of Systems See HPI for pertinent positives & negatives. A total of 10 systems reviewed and were otherwise negative. Past Medical & Surgical Medical Problems: (1) Pulmonary embolism (2) Small cell lung carcinoma Family History No pertinent family history stated. Social History Smoking Status: Former Smoker Marital Status: single Housing Status: other ([facility]) Current/Historical Medications Scheduled Ciclesonide (Alvesco), 1 PUFF INH BID Insulin Human Regular (Humulin R), SQ UD Ipratropium-Albuterol (Duoneb), 1 TREATMENT INH Q4H Meloxicam (Mobic), 15 MG PO DAILY Omeprazole (Prilosec), 20 MG PO DAILY Scheduled PRN Albuterol Hfa (Ventolin Hfa), 2 PUFFS INH QID PRN for RN Docusate Sodium (Colace), 100 MG PO BID PRN for Constipation Allergies Coded Allergies: No Known Allergies (Unverified , 02/24/17) Physical Exam Vital Signs Date Time Temp Pulse Resp B/P Pulse Ox O2 Delivery O2 Flow Rate FiO2 02/24/17 14:23 106 18 150/101 99 Room Air 02/24/17 14:16 88 02/24/17 12:44 106 16 119/81 99 Room Air 02/24/17 11:58 100 Room Air 02/24/17 11:08 36.9 97 18 140/82 100 Room Air 02/24/17 11:08 100 Room Air 02/24/17 11:08 100 Room Air 02/24/17 11:07 94 Physical Exam Constitutional: Vital signs reviewed. Normotensive. Well-appearing. Eyes: Pupils are equal round reactive to light. Conjunctiva are noninjected. ENT: Pharynx is clear without erythema or exudate. Mucous membranes are moist. Neck supple without meningeal signs. Respiratory: Clear to auscultation bilaterally. Breath sounds are equal bilaterally. Cardiovascular: Regular rate and rhythm. No rubs or gallops. GI: Soft, nondistended and nontender. Bowel sounds are present. Musculoskeletal: No peripheral edema. No lower extremity tenderness. Integumentary: No cyanosis. Neurological: The patient is awake and alert. No focal deficits. Psychiatric: Normal affect. Medical Decision & Procedures ER Provider Diagnostic Interpretation: Radiology results as stated below per my review and the radiologist's interpretation: CHEST ONE VIEW PORTABLE CLINICAL HISTORY: eval for pnea dyspnea COMPARISON STUDY: 01/19/2017 FINDINGS: Considerable improvement in the patient's left perihilar lung mass. Central catheter in superior vena cava. Lungs otherwise are generally clear. Chronic bibasilar interstitial prominence is noted. IMPRESSION: Improved exam with no acute process on the current study. Electronically signed by: See Garcia M.D. 02/24/2017 12:15 PM Dictated Date/Time: 02/24/2017 12:[address] ANGIOGRAM OF THE CHEST CLINICAL HISTORY: Lung carcinoma. Shortness of breath. COMPARISON STUDY: Chest x-ray dated 03-11, outside chest CT dated 11/17/2016 TECHNIQUE: Following the IV administration of 92 mL of Optiray-320, CT angiogram of the thorax was performed from the thoracic inlet to the lung bases utilizing the pulmonary embolus protocol. Images are reviewed in the axial, sagittal, and coronal planes. IV contrast was administered without complication. MIP imaging was performed. CT DOSE: 425.01 mGy.cm FINDINGS: There is new right adrenal gland thickening. There is a 12 mm there is mild left hilar adenopathy. There was no evidence of thoracic aortic dilatation. There is a small right lower lobe pulmonary artery filling defect indicative of an acute embolus. No pleural effusions are visualized. There is pulmonary emphysema. There is been interval decrease in the size of the left perihilar mass which encases the left upper lobe pulmonary artery. This currently measures 3 cm in diameter. There are left para mediastinal atelectatic changes. There is a stable 5 mm subpleural right middle lobe pulmonary nodule. IMPRESSION: 1. Small acute right lower lobe pulmonary embolus 2. Interval decrease in the size of the left perihilar mass 3. Interval development of right adrenal gland thickening Electronically signed by: Juanpablo Spence M.D. 02/24/2017 1:42 PM Dictated Date/Time: 02/24/2017 1:34 PM Laboratory Results 02/24/17 11:38 Red Blood Count 3.75, Mean Corpuscular Volume 88.0, Mean Corpuscular Hemoglobin 31.5, Mean Corpuscular Hemoglobin Concent 35.8, Mean Platelet Volume 9.5, Neutrophils (%) (Auto) 69.1, Lymphocytes (%) (Auto) 28.0, Monocytes (%) (Auto) 1.9, Eosinophils (%) (Auto) 0.1, Basophils (%) (Auto) 0.3, Neutrophils # (Auto) 4.65, Lymphocytes # (Auto) 1.89, Monocytes # (Auto) 0.13, Eosinophils # (Auto) 0.01, Basophils # (Auto) 0.02 02/24/17 11:38 Test 02/24/17 11:38 02/24/17 12:00 White Blood Count 6.74 K/uL (4.8-10.8) Red Blood Count 3.75 M/uL (4.7-6.1) Hemoglobin 11.8 g/dL (14.0-18.0) Hematocrit 33.0 % (42-52) Mean Corpuscular Volume 88.0 fL (80-100) Mean Corpuscular Hemoglobin 31.5 pg (25-34) Mean Corpuscular Hemoglobin Concent 35.8 g/dl (32-36) Platelet Count 217 K/uL (130-400) Mean Platelet Volume 9.5 fL (7.4-10.4) Neutrophils (%) (Auto) 69.1 % Lymphocytes (%) (Auto) 28.0 % Monocytes (%) (Auto) 1.9 % Eosinophils (%) (Auto) 0.1 % Basophils (%) (Auto) 0.3 % Neutrophils # (Auto) 4.65 K/uL (1.4-6.5) Lymphocytes # (Auto) 1.89 K/uL (1.2-3.4) Monocytes # (Auto) 0.13 K/uL (0.11-0.59) Eosinophils # (Auto) 0.01 K/uL (0-0.5) Basophils # (Auto) 0.02 K/uL (0-0.2) RDW Standard Deviation 47.5 fL (36.4-46.3) RDW Coefficient of Variation 15.0 % (11.5-14.5) Immature Granulocyte % (Auto) 0.6 % Immature Granulocyte # (Auto) 0.04 K/uL (0.00-0.02) Prothrombin Time 10.0 SECONDS (9.0-12.0) Prothromb Time International Ratio 0.9 (0.9-1.1) Activated Partial Thromboplast Time 24.3 SECONDS (21.0-31.0) Partial Thromboplastin Ratio 0.9 Anion Gap 7.0 mmol/L (3-11) Est Creatinine Clear Calc Drug Dose 99.2 ml/min Estimated GFR () 109.0 Estimated GFR (Non- 94.0 BUN/Creatinine Ratio 14.7 (10-20) Calcium Level 9.1 mg/dl (8.5-10.1) Bedside D-Dimer 435 ng/mlFEU (0-450) Bedside Troponin I 0.010 ng/ml (0-0.045) Laboratory results as reviewed by me. ECG Indication: chest pain Rate (beats per minute): 98 Rhythm: sinus rhythm Findings: PVC, T-wave inversion (lead 1 and AVL) ED Course 1127: The patient was evaluated in room C10. A complete history and physical exam was performed. 1348: I reevaluated the patient and he is resting comfortably. I discussed the exam findings with him and the guards and I discussed the treatment plan. They all verbalized complete understanding and agreement. He will be evaluated for further treatment. 1414: I discussed the patients case with YASMANY Lorenzo. He is going to evaluate the patient for further treatment. Medical Decision This is a 61-year-old male who presents with chest pain. Differential diagnosis includes DVT, pulmonary embolism, pneumonia, pneumothorax, acute coronary syndrome, pleurisy. I did perform a limited focused review of portions of the patient's old chart on the electronic medical record. The patient has had no recent pertinent visits to this hospital. I did evaluate the patient as noted above. IV access was established. The patient was placed on a continuous cardiac rn. I did order and personally review the patient's 12-lead EKG and chest x-ray as described above. I did order and review the patient's blood work as noted in the electronic medical record. Troponin and d-dimer are negative. The patient does have a history of carcinoma. He is intermittently tachycardic here and had hypotension prior to arrival. Despite the negative d-dimer I was concerned about pulmonary embolism. I did order a CT of the chest. I did review the images myself as well as the radiology report as described above. He does have a right-sided lower lobe pulmonary embolus. I did discuss the test results with the patient. I did discuss the case with the hospitalist and casework specialist for further care and evaluation. Consults Time Called: 1350 Consulting Physician: YASMANY Lorenzo Returned Call: [phone] I discussed the patients case with YASMANY Lorenzo. He is going to evaluate the patient for further treatment. Impression Primary Impression: Pulmonary embolus, right Scribe Attestation The scribe's documentation has been prepared under my direct and personally reviewed by me in its entirety. I confirm that the note above accurately reflects all work, treatment, procedures, and medical decision making performed by me. Departure Information Dispostion Being Evaluated By Hospitalist Referrals Rito ROSA (PCP)
[2017-02-24] MEDS: SODIUM CHLOR 0.45% + 20MEQ KCL 1,000 ML IV SCH (17:02)
[2017-02-24] MEDS: ONDANSETRON INJ 2 MG/ML 2 ML VIAL IV PRN (17:02)
[2017-02-24 17:15] VITALS: PULSE 96; O2SAT 99
[2017-02-24] MEDS: ALBUT/IPRATROP 3MG/0.5MG NEB 3 ML VIAL INH SCH ×2 (17:15→19:22)
[2017-02-24] MEDS ORDERED: MoRPHine SULFATE 4 MG/ML 1 ML CARP\\VIAL IV PRN (18:45)
[2017-02-24] MEDS: ENOXAPARIN 80 MG/0.8 ML SYR SQ SCH (18:56)
[2017-02-24 19:14] VITALS: BMI 24.5
[2017-02-24 19:23] VITALS: PULSE 117; O2SAT 98
[2017-02-24] MEDS: MAGNESIUM OXIDE 400 MG TAB PO SCH (20:00)
--- NOTE | 2017-02-24 22:02 | History and Physical ---
History & Physical Date & Time of Service: February 24, 2017 at 21:59 Chief Complaint: Pulmonary Embolism Primary Care Physician: Rito ROSA Social History Smoking Status: Former Smoker Marital Status: single Allergies Coded Allergies: No Known Allergies (Unverified , 02/24/17) Home Medications Scheduled Ciclesonide (Alvesco), 1 PUFF INH BID Insulin Human Regular (Humulin R), SQ UD Ipratropium-Albuterol (Duoneb), 1 TREATMENT INH Q4H Meloxicam (Mobic), 15 MG PO DAILY Omeprazole (Prilosec), 20 MG PO DAILY Scheduled PRN Albuterol Hfa (Ventolin Hfa), 2 PUFFS INH QID PRN for RN Docusate Sodium (Colace), 100 MG PO BID PRN for Constipation Physical Exam Vital Signs Date Time Temp Pulse Resp B/P Pulse Ox O2 Delivery O2 Flow Rate FiO2 02/24/17 19:23 117 16 98 Room Air 02/24/17 19:14 Room Air 02/24/17 17:15 96 16 99 Room Air 02/24/17 16:22 36.3 115 20 137/91 99 Room Air 02/24/17 14:23 106 18 150/101 99 Room Air 02/24/17 14:16 88 02/24/17 12:44 106 16 119/81 99 Room Air 02/24/17 11:58 100 Room Air 02/24/17 11:08 36.9 97 18 140/82 100 Room Air 02/24/17 11:08 100 Room Air 02/24/17 11:08 100 Room Air 02/24/17 11:07 94 Diagnostics Laboratory Results Results Past 24 Hours Test 02/24/17 11:38 02/24/17 12:00 Range/Units White Blood Count 6.74 4.8-10.8 K/uL Red Blood Count 3.75 4.7-6.1 M/uL Hemoglobin 11.8 14.0-18.0 g/dL Hematocrit 33.0 42-52 % Mean Corpuscular Volume 88.0 80-100 fL Mean Corpuscular Hemoglobin 31.5 25-34 pg Mean Corpuscular Hemoglobin Concent 35.8 32-36 g/dl Platelet Count 217 130-400 K/uL Mean Platelet Volume 9.5 7.4-10.4 fL Neutrophils (%) (Auto) 69.1 % Lymphocytes (%) (Auto) 28.0 % Monocytes (%) (Auto) 1.9 % Eosinophils (%) (Auto) 0.1 % Basophils (%) (Auto) 0.3 % Neutrophils # (Auto) 4.65 1.4-6.5 K/uL Lymphocytes # (Auto) 1.89 1.2-3.4 K/uL Monocytes # (Auto) 0.13 0.11-0.59 K/uL Eosinophils # (Auto) 0.01 0-0.5 K/uL Basophils # (Auto) 0.02 0-0.2 K/uL RDW Standard Deviation 47.5 36.4-46.3 fL RDW Coefficient of Variation 15.0 11.5-14.5 % Immature Granulocyte % (Auto) 0.6 % Immature Granulocyte # (Auto) 0.04 0.00-0.02 K/uL Prothrombin Time 10.0 9.0-12.0 SECONDS Prothromb Time International Ratio 0.9 0.9-1.1 Activated Partial Thromboplast Time 24.3 21.0-31.0 SECONDS Partial Thromboplastin Ratio 0.9 Sodium Level 137 136-145 mmol/L Potassium Level 4.0 3.5-5.1 mmol/L Chloride Level 104 98-107 mmol/L Carbon Dioxide Level 26 21-32 mmol/L Anion Gap 7.0 3-11 mmol/L Blood Urea Nitrogen 13 7-18 mg/dl Creatinine 0.88 0.60-1.40 mg/dl Est Creatinine Clear Calc Drug Dose 99.2 ml/min Estimated GFR () 109.0 Estimated GFR (Non- 94.0 BUN/Creatinine Ratio 14.7 10-20 Random Glucose 239 70-99 mg/dl Calcium Level 9.1 8.5-10.1 mg/dl Bedside D-Dimer 435 0-450 ng/mlFEU Bedside Troponin I 0.010 0-0.045 ng/ml Microbiology Results 02/24/17 MRSA DNA Surveillance Screen - Final, Complete Specimen Negative for MRSA by DNA Probe Impression Assessment and Plan admit #[id number] Advanced Directives Existing Living Will: No Existing Power of Account Executive [employer]: No VTE Prophylaxis VTE Risk Assessment Done? Y/N: Yes Risk Level: Moderate
--- NOTE | 2017-02-24 22:43 | HISTORY & PHYSICAL EXAMINATION ---
DATE OF ADMISSION: 02/24/2017 CHIEF COMPLAINT: Chest pain and weakness. HISTORY OF PRESENT ILLNESS: The patient is a 61-year-old male sent over from [facility]. He was apparently feeling weak, having chest pain and was hypotensive, reportedly, as low as 60 systolic, although I can only find reference of this, not the actual recording of vital signs. He presented to the ER acutely with low blood pressure as well as feeling chest pain and shortness of breath. He also had a number of ongoing complaints related to the cancer and chemotherapy as far as just generally feeling weak, rundown, fatigued, having leg cramps off and on, but acutely, no other clear complaints. His had a chest CT that showed a small right-sided PE, likely culprit for his acute symptoms. We were asked to evaluate him further. Given how stable his vitals were, by the time I was seeing him, I called the [facility] to see if they felt comfortable with ongoing management of his PE at the [facility]. Given the low blood pressures, they asked if we would please watch him overnight to ensure he is no longer hypotensive and then probably could move forward at the [facility] by tomorrow. REVIEW OF SYSTEMS: Otherwise negative, except for as above. PAST MEDICAL HISTORY: Lung cancer with brain metastasis, small cell. PAST SURGICAL HISTORY: Includes a port placement and a pacemaker, hemorrhoidectomy, oral surgery, liver biopsy and excision of a soft tissue tumor on the subcutaneous tissue of his back. FAMILY HISTORY: He had a grandfather, who of lung cancer, but not until about 94, a fraternal grandfather passed of an RI in his 50s, mom at age 78, apparently with stroke complications, dad at 64 of pancreatic cancer. He has no children. SOCIAL HISTORY: He is a former smoker, has about 40+ pack years, quitting in 2014. He is currently incarcerated and single. Prior substance abuse as well. ALLERGIES: No known drug allergies. HE IS ALLERGIC TO WASPS. MEDICATIONS: Ventolin 2 puffs q.i.d. p.r.n. shortness of breath or wheeze, Alvesco 1 puff b.i.d., Colace 100 mg b.i.d. p.r.n. constipation, Humulin R subQ as directed, DuoNebs q. 4 hours, Mobic 15 mg daily, Prilosec 20 mg daily. PHYSICAL EXAMINATION: VITAL SIGNS: Temp 36.9, pulse 97, respiratory rate 18, blood pressure 140/82, 100% on room air. GENERAL: He is awake, alert, oriented x3, somewhat anxious, but no acute distress. HEENT: Normocephalic, atraumatic. Mucous membranes are moist. CARDIOVASCULAR: Regular without rubs, murmurs or gallops. LUNGS: Clear to auscultation bilaterally. No rales, rhonchi or wheezes, with good effort. ABDOMEN: Soft, nondistended, nontender, no masses or organomegaly. EXTREMITIES: Without cyanosis, clubbing or edema. No calf tenderness. SKIN: Shows no rashes, no pallor or icterus. MUSCULOSKELETAL: Shows normal muscle tone. No significant calf hypertonicity in the areas that he notes cramps. NEUROLOGIC: Cranial nerves II-XII to be grossly intact. Gross motor and sensory are intact. MENTAL STATE: Shows good recent and remote recall. Fair judgment and insight; slightly anxious mood and affect. LABS AND DIAGNOSTICS: CBC shows a white count of 6.74, hemoglobin 11.8, platelets 217. Basic metabolic panel with sodium 137, potassium 4, chloride 104, CO2 26, BUN 13, creatinine 0.88, calcium 9.1, glucose 239. Troponin of 0.01. PT 10, PTT 24.3. D-dimer 435. Chest x-ray showed improvement compared to his previous exam about 8 weeks ago, chronic bibasilar interstitial prominence. His chest CT showed a small acute right lower lobe pulmonary embolus, decrease in size of his left perihilar mass and interval development of right adrenal gland thickening. ASSESSMENT AND PLAN: 1. Acute pulmonary embolism. This appears to be the culprit for his chest pain and shortness of breath. Fortunately, it seems fairly mild and he is not hypoxic or hypotensive now. Discussed outpatient management at the [facility], but because of his prior questionable hypotension, certainly, it does appear reasonable to keep him overnight and follow. Given the active malignancy setting, we will utilize Lovenox mg/kg subQ q. 12h., as the anticoagulant of choice and continue to follow and maintain supportive care. 2. Hypotension. It is unclear exactly what or if this was even real. It appears to have been very transient, resolved really without any specific intervention. Given that he has had poor p.o. intake, we will rehydrate him with IV fluids and continue to follow his blood pressure. Certainly, given that he is tachycardic, it could be that he is a bit volume depleted and we will follow with his IV fluids. 2. Anxiety. This also may be a bit of the culprit for the tachycardia. We will try to utilize supportive care well, rehydrate him and follow closely. 3. Lung cancer with metastasis to the brain . Ongoing outpatient chemotherapy and radiation, ongoing management per his oncology team. 4. Mild anemia. Follow. 5. Hyperglycemia. He notes prior to being on the prednisone, he never had diabetes. However, certainly, being a quite 62-year-old [place] male and given the degree of his sugars, now that he is still off the prednisone, we will check an A1c. [facility]
[2017-02-25 00:05] VITALS: BP 129/91; PULSE 103; TEMP 36.7; O2SAT 96
[2017-02-25] MEDS: ONDANSETRON INJ 2 MG/ML 2 ML VIAL IV PRN ×2 (00:39→07:27)
[2017-02-25] MEDS: SODIUM CHLOR 0.45% + 20MEQ KCL 1,000 ML IV SCH (05:44)
[2017-02-25] MEDS: ENOXAPARIN 80 MG/0.8 ML SYR SQ SCH (05:45)
[2017-02-25 06:59] VITALS: BP 164/97; PULSE 91; TEMP 36.6; O2SAT 96
[2017-02-25 07:13] VITALS: PULSE 105; O2SAT 98
[2017-02-25] MEDS: ALBUT/IPRATROP 3MG/0.5MG NEB 3 ML VIAL INH SCH ×3 (07:13→14:37)
[2017-02-25 07:57] LABS: ESTIMATED AVERAGE GLUCOSE 301 mg/dl; HA1C FLAG Normal (Normal)
[2017-02-25] MEDS ORDERED: MELOXICAM 7.5 MG TAB PO SCH (08:00)
[2017-02-25] MEDS ORDERED: PANTOprazole SOD 40 MG TAB PO SCH (08:00)
[2017-02-25] MEDS: MAGNESIUM OXIDE 400 MG TAB PO SCH (08:17)
[2017-02-25 09:55] LABS: HEMATOCRIT 33.7 % (42-52); MEAN CELL VOLUME 88.2 fL (80-100); MEAN CORPUSCULAR HEMOGLOBIN 31.2 pg (25-34); MEAN CORPUSCULAR HGB CONC 35.3 g/dl (32-36); MEAN PLATELET VOLUME 9.3 fL (7.4-10.4); PLATELET COUNT 194 K/uL (130-400); RED BLOOD COUNT 3.82 M/uL (4.7-6.1); WHITE BLOOD COUNT 6.09 K/uL (4.8-10.8)
[2017-02-25 10:54] LABS: BUN/CREATININE RATIO 6.8 (10-20); CALCIUM 8.8 mg/dl (8.5-10.1); CREATININE 0.93 mg/dl (0.60-1.40); POTASSIUM 4.3 mmol/L (3.5-5.1)
[2017-02-25 11:00] VITALS: Ht 182.9 cm; Wt 82.1 kg
[2017-02-25 11:15] VITALS: BP 135/91; PULSE 91
[2017-02-25] MEDS ORDERED: ENOX120I SQ (12:22)
[2017-02-25] MEDS ORDERED: ONDA4TAB46 PO (12:22)
--- NOTE | 2017-02-25 12:42 | Discharge Instructions ---
Discharge Instructions Date of Service February 25, 2017. Admission Reason for Admission: Pulmonary Embolism Discharge Discharge Diagnosis / Problem: Pulmonary embolism Discharge Goals Goal(s): Decrease discomfort, Improve function, Diagnostic testing, Therapeutic intervention Activity Recommendations Activity Level: Up Ad Eileen . Additional Information Patient informed of condition: Yes Advance Directives: No DNR: No Level of Care: Other ([facility]) Communicable Disease: No Prognosis: Stable Instructions / Follow-Up Instructions / Follow-Up The patient was admitted to the hospital after presenting with chest pain and weakness. He was found to have a small right-sided pulmonary embolism. [facility] states that they are comfortable managing the pulmonary embolism there, however, they wanted the patient to be observed overnight due to reported hypotension. The patient remained stable overnight and actually has reported hypertension. Due to his elevated blood sugars, the patient's hemoglobin A1c was checked which was elevated at 12.1. The patient was on prednisone for about a month and a half and had just stopped recently prior to admission, but there is likely underlying diabetes to account for such an elevated A1c, not just steroid use alone. Medications: *Lovenox 1 mg/kg (120 mg total) subcutaneous daily. Patient will need to be on this indefinitely due to his history of malignancy and resultant hypercoagulable state. *Zofran 4 mg PO q6h prn nausea *Continue home medications as prescribed Due to markedly elevated hemoglobin A1c, it is recommended the patient be started on maintenance medications for his underlying diabetes mellitus type 2, such as metformin, as opposed to using a sliding scale of insulin as needed. He will need to be seen regularly to manage his diabetes, again preferably starting with oral agents first. Follow up: *Patient should be followed up within 1 week of discharge regarding improvement of symptoms, and then followed routinely to manage diabetes. Please seek medical attention if you experience fevers, chills, sweats, chest pain, shortness of breath, nausea, vomiting, numbness or tingling, lightheadedness, or loss of consciousness. Current Hospital Diet Patient's current hospital diet: Regular Diet Discharge Diet Recommended Diet: Diabetes Type 2 Diet Procedures Procedures Performed: CTA--positive for right sided pulmonary embolism Pending Studies Studies pending at discharge: no Laboratory Results Hemoglobin A1c Test 02/24/17 11:38 Range/Units Estimated Average Glucose 301 mg/dl Hemoglobin A1c 12.1 H 4.5-5.6 % Medical Emergencies . Who to Call and When: Medical Emergencies: If at any time you feel your situation is an emergency, please call 911 immediately. . Non-Emergent Contact Non-Emergency issues call your: Primary Care Provider Call Non-Emergent contact if: you have a fever, your pain is not controlled, your pain is worsening, your pain is unusual for you, your pain is concerning you, you have any medication questions . Past History Medical & Surgical History: (1) Pulmonary embolus, right . "Provider Documentation" section prepared by Sonia Valdes. . Core Measure Problem Core Measures: VTE VTE Core Measures Date of VTE Diagnosis: February 24, 2017 Time of VTE Diagnosis: 13:34 Reason no anticoag overlap I/P: Treatment provided - N/A Reason no anticoag overlap @DC: Treatment provided - N/A
[2017-02-25 13:11] VITALS: BP 135/91; TEMP 36.6; O2SAT 98
--- NOTE | 2017-02-25 14:26 | Discharge Summary ---
Discharge Summary Date of Service February 25, 2017. (Sonia Valdes .JENNA) Discharge Summary Admission Date: February 24, 2017 at 14:43 Discharge Date: February 25, 2017 Discharge Disposition: Personal care ([facility]) Principal Diagnosis: Right pulmonary embolism Procedures: CTA: IMPRESSION: 1. Small acute right lower lobe pulmonary embolus 2. Interval decrease in the size of the left perihilar mass 3. Interval development of right adrenal gland thickening (Sonia Valdes PA-C) Medication Reconciliation New Medications: Enoxaparin (Lovenox) 120 Mg/0.8 Ml Inj 120 MG SQ DAILY for 30 Days, #30 SYR Ondansetron Hcl (Zofran) 4 Mg Tab 4 MG PO Q6H PRN for Nausea for 30 Days, #120 TAB Continued Medications: Albuterol Hfa (Ventolin Hfa) 200 Puffs/89142 Mcg Aers 2 PUFFS INH QID PRN for RN, #1 INHALER Ciclesonide (Alvesco) 160 Mcg/Act Aer 1 PUFF INH BID Docusate Sodium (Colace) 100 Mg Cap 100 MG PO BID PRN for Constipation Insulin Human Regular (Humulin R) 100 Units/Ml Susp SQ UD Ipratropium-Albuterol (Duoneb) 3 Ml Nebu 1 TREATMENT INH Q4H, INHA Meloxicam (Mobic) 7.5 Mg Tab 15 MG PO DAILY, TAB Omeprazole (Prilosec) 20 Mg Capcr 20 MG PO DAILY, CAP Discharge Exam Patient claims of shortness breath and dyspnea on exertion, although he states that these are somewhat improved from yesterday. He also complains of nausea that is worse after eating, as well as epigastric pain that is currently a 6/10 dull pain. This pain sometimes radiates up into the chest, particularly after eating. Patient also notes some tingling in his fingers and the bottoms of his feet. The patient denies fevers, chills, sweats, chest pain, palpitations, claudication, cough, wheezing, vomiting, dysuria, hematuria, urinary retention, paralysis, weakness. Review of Systems: Constitutional: No chills, No fever, No sweats Eyes: No diplopia, No eye pain, No worsening of vision ENT: No hearing loss, No sore throat, No trouble swallowing Respiratory: + dyspnea on exertion, + shortness of breath, No cough, No wheezing Cardiovascular: No chest pain, No claudication, No palpitations Abdomen: + nausea, + pain, No vomiting Musculoskeletal: No calf pain, No joint pain, No muscle pain Genitourinary - Male: No dysuria, No hematuria, No urinary retention Neurologic: + numbness/tingling, No paralysis, No weakness Integumentary: No color change, No itch, No rash Physical Exam: General Appearance: WD/WN, no apparent distress Eyes: normal inspection, PERRL, EOMI ENT: normal ENT inspection, hearing grossly normal, pharynx normal Neck: supple, no JVD, trachea midline Respiratory/Chest: lungs clear, normal breath sounds, no respiratory distress Cardiovascular: regular rate, rhythm, no gallop, no murmur Abdomen / GI: normal bowel sounds, soft, + tenderness (epigastric area TTP, milder tenderness RUQ and LUQ) Extremities: normal inspection, no calf tenderness, no pedal edema Neurologic/Psychiatric: alert, normal mood/affect, oriented x 3 Skin: normal color, warm/dry, no rash (Sonia Valdes ., PAMoralesC) Hospital Course 61 y/o male with a history of 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 CTA as above. Acute PE--stable -Admit to [facility] -Started on Lovenox 1 mg/kg SC q12h due to h/o malignancy -Discharged on Lovenox 1.5 mg/kg SC qd. Patient will need indefinitely due to history of malignancy and hypercoagulable state -[facility] states they are comfortable managing this Hypotension--resolved -Unclear if patient was truly hypotensive as all recorded blood pressures are either within normal range or elevated -Hydrated with 1/2NSS + 20 mEq KCl at 75 cc/hr -Tachycardia did improve, heart rate in the low 90s Nausea, abdominal pain -Continue Prilosec 20 mg PO qd -May use Zofran 4 mg PO q6h prn nausea in addition Small cell lung cancer with metastasis to the brain--stable -Continue outpatient chemotherapy and radiation per oncology Hyperglycemia/diabetes mellitus type 2--no previous personal history of diabetes. +family history -HgbA1c 12.1 on 02/24 -Although patient was recently on prednisone for a month and a half, I doubt that an A1c this elevated is due to steroid use alone. -Recommend the patient be started on maintenance therapy with oral agent such as metformin for underlying diabetes This chart was completed in part utilizing [employer] Speech Voice Recognition software. Attempts were made to minimize the grammatical errors, random word insertions, pronoun errors and incomplete sentences. Any formal questions or concerns about the content, text or information contained within the body of this dictation should be directly addressed to the provider for clarification. Total Time Spent: Greater than 30 minutes This includes examination of the patient, discharge planning, medication reconciliation, and communication with other providers. (Sonia Valdes ., PA-C) I agree with PA assessment and plan and have seen and examined pt myself Resting comfortably in bed CP resolved No more hypotension noted Acute PE per CT Cont with lovenox due to cancer hx Stable for discharge back to residential (Kaden Clark, D.O.) Discharge Instructions Please refer to the electronic Patient Visit Report (Discharge Instructions) for additional information. (Sonia Valdes ., PA-C) Additional Copies To [facility]
[2017-02-25 14:37] VITALS: PULSE 109; O2SAT 98
[2017-07-05] MEDS ORDERED: MCRK20 PO (08:51)
[2017-07-05] MEDS ORDERED: DXM1 PO (08:51)
[2017-07-05] MEDS ORDERED: LPR25 PO (08:51)
[2017-07-05] MEDS ORDERED: MRLP17 PO (08:51)
== END 2017-02-25 15:01 | disposition home or self-care (01) ==
LOC: ENRESERVDT → ENRESERVTM → EDBD → C.EDC 10:59 → C.MS4W 14:43 → EDBEDREQ 14:46
PROVIDERS: ADMIT Family Medicine; ATTEND Hospitalist
DX: I26.99 Other pulmonary embolism without acute cor pulmonale (principal); D64.9 Anemia, unspecified; E11.65 Type 2 diabetes mellitus with hyperglycemia; C79.31 Secondary malignant neoplasm of brain; C34.90 Malignant neoplasm of unspecified part of unspecified bronchus or lung; I95.9 Hypotension, unspecified; Z79.4 Long term (current) use of insulin; Z87.891 Personal history of nicotine dependence; Z80.1 Family history of malignant neoplasm of trachea, bronchus and lung; Z80.0 Family history of malignant neoplasm of digestive organs; Z82.3 Family history of stroke; Z95.0 Presence of cardiac pacemaker

== ENCOUNTER 2017-03-02 18:20 | Emergency (ER) | payer OTHER ==
[~2017-03-02] VITALS: Ht 182.9 cm; Wt 84.4 kg
[2017-03-02 18:20] VITALS: TEMP 36.8; Ht 182.9 cm; Wt 84.4 kg
[~2017-03-02 18:20] MED LIST changes: -ACET-749 PO; +ENOX120I SQ; +INSHRIE SQ; +IPRASOL4 INH; -MELATAB2 PO; +ONDA4TAB46 PO; -PRED10TA PO
[2017-03-02] MEDS ORDERED: SODIUM CHLORIDE 0.9% 1000ML 1,000 ML IV STA (18:35)
[2017-03-02] MEDS ORDERED: ONDANSETRON INJ 2 MG/ML 2 ML VIAL IV STA (18:35)
[2017-03-02] MEDS ORDERED: SODIUM CHLORIDE 0.9% 1000ML 500 ML IV STA (18:35)
[2017-03-02 18:39] VITALS: O2SAT 98
[2017-03-02] MEDS ORDERED: MoRPHine SULFATE 10 MG/ML CARP/VIAL IV PRN (18:45)
[2017-03-02] MEDS ORDERED: OPTIRAY 320 IV PRN (18:45)
[2017-03-02 18:55] LABS: HEMATOCRIT 31.3 % (42-52); MEAN CELL VOLUME 88.9 fL (80-100); MEAN CORPUSCULAR HEMOGLOBIN 32.1 pg (25-34); MEAN CORPUSCULAR HGB CONC 36.1 g/dl (32-36); MEAN PLATELET VOLUME 9.5 fL (7.4-10.4); PLATELET COUNT 183 K/uL (130-400); RED BLOOD COUNT 3.52 M/uL (4.7-6.1); WHITE BLOOD COUNT 3.97 K/uL (4.8-10.8)
[2017-03-02] MEDS ORDERED: ONDA8TAB6 PO (19:00)
[2017-03-02] MEDS ORDERED: WARF5TAB7 PO (19:00)
[2017-03-02 19:05] LABS: PARTIAL THROMBOPLASTIN RATIO 1.1; PROTHROMBIN TIME (PATIENT) 10.7 SECONDS (9.0-12.0)
[2017-03-02 19:14] LABS: ALT/SGPT 102 U/L (12-78); AST/SGOT 48 U/L (15-37); BLOOD UREA NITROGEN 6 mg/dl (7-18); BUN/CREATININE RATIO 7.2 (10-20); CALCIUM 8.7 mg/dl (8.5-10.1); CARBON DIOXIDE 23 mmol/L (21-32); CHLORIDE 105 mmol/L (98-107); CREATININE 0.84 mg/dl (0.60-1.40); GLUCOSE 123 mg/dl (70-99); POTASSIUM 3.6 mmol/L (3.5-5.1); SODIUM 138 mmol/L (136-145)
--- NOTE | 2017-03-02 19:19 | DIAGNOSTIC IMAGING REPORT ---
CHEST ONE VIEW PORTABLE CLINICAL HISTORY: CHEST PAIN dyspnea COMPARISON STUDY: 02/24/2017 FINDINGS: The bones soft tissues and hemidiaphragms are normal. The cardiomediastinal silhouette is normal. The lungs are clear. The pulmonary vasculature is normal. IMPRESSION: Negative chest. Electronically signed by: See Garcia M.D. 03/02/2017 7:18 PM Dictated Date/Time: 03/02/2017 7:18 PM
[2017-03-02 19:20] LABS: ALKALINE PHOSPHATASE 75 U/L (45-117); CKMB/CK RATIO 2.8 (0-3.0)
--- NOTE | 2017-03-02 19:27 | EMERGENCY ROOM VISIT NOTE ---
History Report prepared by Alfonso: Karli Crawford Under the Supervision of: Dr. Morris Quesada M.D. First contact with patient: 18:29 Chief Complaint: CHEST PAIN Stated Complaint: CHEST PAIN /FR [facility] History of Present Illness The patient is a 61 year old male who presents to the Emergency Room via ALS from [facility] with complaints of mid-chest pain starting about 3-4 hours ago. He describes it to be a sharp pain and pressure in his chest. He denies any pain radiation. He has worsening pain with palpation. He also complains of shortness of breath. He reports intermittent nausea. He received 2 Nitro in route to the Emergency Room. The patient was diagnosed with Pulmonary Embolism on February 24. He was placed on Zofran and Lovenox. He had similar chest pain at the time as well. He reports some improvement in his breathing since he was discharged from the hospital. He is currently receiving chemo for Stage IV small cell lung cancer. He denies any history of myocardial infarction. The patient denies any recent falls, trauma, or injuries. He denies fevers, chills, lower extremity swelling, or any other complaints. Source of History: patient Onset: about 3-4 days ago Position: chest (mid) Quality: pressure, sharp Modifying Factors (Worsening): other (palpation) Modifying Factors (Relieving): other (2 Nitro in route to the Emergency Room ) Associated Symptoms: + SOB, + nausea, No chills, No fevers Review of Systems See HPI for pertinent positives & negatives. A total of 10 systems reviewed and were otherwise negative. 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) Current/Historical Medications Scheduled Ciclesonide (Alvesco), 1 PUFF INH BID Enoxaparin (Lovenox), 120 MG SQ DAILY Insulin Human Regular (Humulin R), SQ UD Ipratropium-Albuterol (Duoneb), 1 TREATMENT INH Q4H Meloxicam (Mobic), 15 MG PO DAILY Omeprazole (Prilosec), 40 MG PO DAILY Warfarin Sod (Jantoven), 5 MG PO HS Scheduled PRN Albuterol Hfa (Ventolin Hfa), 2 PUFFS INH QID PRN for RN Docusate Sodium (Colace), 100 MG PO BID PRN for Constipation Ondansetron Hcl (Zofran), 8 MG PO TID PRN for Nausea Allergies Coded Allergies: No Known Allergies (Unverified , 03/02/17) Physical Exam Vital Signs Date Time Temp Pulse Resp B/P Pulse Ox O2 Delivery O2 Flow Rate FiO2 03/02/17 20:11 90 16 133/86 100 Room Air 03/02/17 19:28 101 16 111/87 Room Air 03/02/17 18:39 98 Room Air 03/02/17 18:31 117 03/02/17 18:25 98 Room Air 03/02/17 18:20 36.8 111 18 103/81 98 Room Air 03/02/17 18:20 98 Room Air Physical Exam GENERAL: Patient is in no acute distress. HEENT: No acute trauma, normocephalic atraumatic, mucous membranes moist, no nasal congestion, no scleral icterus. NECK: No stridor, no adenopathy, no meningismus, trachea is midline. CHEST: Tenderness over the mid low sternal chest wall. LUNGS: Clear to auscultation bilaterally, no wheeze, no rhonchi, breath sounds equal. HEART: Tachycardic rate with a regular rhythm, no murmurs. ABDOMEN: Soft, nontender, bowel sounds positive, no hernias, no peritonitis. EXTREMITIES: No cyanosis or edema, full range of motion of all the joints without pain or difficulty, no signs for acute trauma. NEUROLOGIC: Oriented x 3, no acute motor or sensory deficits, no focal weakness. SKIN: No rash, no jaundice, no diaphoresis. Medical Decision & Procedures ER Provider Diagnostic Interpretation: X-ray results as stated below per interpretation by me and the radiologist: CHEST ONE VIEW PORTABLE CLINICAL HISTORY: CHEST PAIN dyspnea COMPARISON STUDY: 02/24/2017 FINDINGS: The bones soft tissues and hemidiaphragms are normal. The cardiomediastinal silhouette is normal. The lungs are clear. The pulmonary vasculature is normal. IMPRESSION: Negative chest. Electronically signed by: See Garcia M.D. 03/02/2017 7:18 PM Dictated Date/Time: 03/02/2017 7:18 PM CTA results as stated below per my review and radiologist interpretation: ADDENDUM This study is now compared to a prior study dated 02/24/2017. On the right lower lobe filling defect is unchanged. There are no new or interval findings. The small embolus is considered unchanged and therefore now chronic. Electronically signed by: See Garcia M.D. 03/02/2017 8:24 PM Dictated Date/Time: 03/02/2017 8:23 PM ORIGINAL REPORT CHEST CTA for PULMONARY ARTERIES CT DOSE: 453.69 mGy.cm HISTORY: Chest pain dyspnea TECHNIQUE: Multiaxial CT images of the chest were performed following the intravenous administration of contrast to evaluate the pulmonary arteries. Maximal intensity projection images were also obtained. COMPARISON STUDY: None. FINDINGS: Thoracic aorta shows minimal atherosclerotic change and ectasia. No evidence for aneurysm or dissection. There is a small thrombus within a second order right lower lobe vessel. This is best seen on transaxial image 40. There is no main central pulmonary embolus. There is moderate fullness left hilum compared to the right. There are findings of a mild post obstructive atelectatic and/or infiltrative change medial aspect left upper lobe. This is improved, however as compared to a prior PET/CT scan dated 12/08/2016.. IMPRESSION: 1. Study is positive for a second order embolus involving the mid aspect of the right lower lobe. 2. Improving size of a left hilar mass with stable to improved post obstructive atelectatic change medial aspect left upper lobe. 3. No evidence for a major central pulmonary embolus. Electronically signed by: See Garcia M.D. 03/02/2017 8:12 PM Dictated Date/Time: 03/02/2017 8:07 PM Laboratory Results 03/02/17 18:45 03/02/17 18:45 Test 03/02/17 18:45 Red Blood Count 3.52 M/uL (4.7-6.1) Mean Corpuscular Volume 88.9 fL (80-100) Mean Corpuscular Hemoglobin 32.1 pg (25-34) Mean Corpuscular Hemoglobin Concent 36.1 g/dl (32-36) RDW Standard Deviation 50.8 fL (36.4-46.3) RDW Coefficient of Variation 17.4 % (11.5-14.5) Mean Platelet Volume 9.5 fL (7.4-10.4) Prothrombin Time 10.7 SECONDS (9.0-12.0) Prothromb Time International Ratio 1.0 (0.9-1.1) Activated Partial Thromboplast Time 27.6 SECONDS (21.0-31.0) Partial Thromboplastin Ratio 1.1 Anion Gap 10.0 mmol/L (3-11) Est Creatinine Clear Calc Drug Dose 104.0 ml/min Estimated GFR () 111.1 Estimated GFR (Non- 95.8 BUN/Creatinine Ratio 7.2 (10-20) Calcium Level 8.7 mg/dl (8.5-10.1) Total Bilirubin 0.6 mg/dl (0.2-1) Aspartate Amino Transf (AST/SGOT) 48 U/L (15-37) Alanine Aminotransferase (ALT/SGPT) 102 U/L (12-78) Alkaline Phosphatase 75 U/L (45-117) Total Creatine Kinase 47 U/L (39-308) Creatine Kinase MB 1.3 ng/ml (0.5-3.6) Creatine Kinase MB Ratio 2.8 (0-3.0) Troponin I < 0.015 ng/ml (0-0.045) Total Protein 6.5 gm/dl (6.4-8.2) Albumin 3.3 gm/dl (3.4-5.0) Globulin 3.2 gm/dl (2.5-4.0) Albumin/Globulin Ratio 1.0 (0.9-2) Lipase 91 U/L (73-393) Laboratory results reviewed by me. Medications Administered Medications (Trade) Dose Ordered Sig/Elidia Route Start Time Stop Time Status Last Admin Dose Admin Sodium Chloride (Nss 1000ml) 500 ml @ 999 mls/hr Q31M STAT IV 03/02/17 18:35 03/02/17 19:05 DC 03/02/17 18:35 999 MLS/HR Ondansetron HCl 4 mg 4 mg NOW STAT IV 03/02/17 18:35 03/02/17 18:37 DC 03/02/17 19:24 4 MG Sodium Chloride (Nss 1000ml) 1,000 ml @ 200 mls/hr Q5H STAT IV 03/02/17 18:35 03/02/17 23:34 03/02/17 19:24 200 MLS/HR Morphine Sulfate (MoRPHine SULFATE INJ) 4 mg Q15M PRN IV 03/02/17 18:45 03/16/17 18:44 03/02/17 19:25 4 MG ECG Indication: chest pain Rate (beats per minute): 117 Rhythm: sinus tachycardia Findings: PAC, no acute ischemic change ED Course 1828: The patient was evaluated in room C07. A complete history and physical exam was performed. 183: Sodium Chloride 1000 ml @ 200 mls/hr IV, Zofran Inj 4 mg IV, Sodium Chloride 500 ml @ 999 mls/hr IV 1844: Morphine Sulfate 4 mg IV 2023: I discussed the patient's case with Dr. Garcia, radiologist with [facility]. He reported the identified pulmonary embolus is the same exact one as before and it has not worsened. 2030: Reevaluated the patient. Discussed results and discharge instructions: He verbalized understanding and agreement. The patient is ready for discharge. Medical Decision Differential diagnosis includes but is not limited to worsening pulmonary embolism, pneumothorax, pneumonia, bronchitis, myocardial infarction, aortic dissection, dehydration, anemia, musculoskeletal pain. There is no leukocytosis, in fact, the white count is slightly low. There is a mild anemia present, nothing critical. No significant electrolyte abnormality, kidney failure or hepatitis. EKG shows a sinus tachycardia with PACs, no acute ischemia. Cardiac enzyme testing times one is not consistent with acute cardiac injury. Chest film shows no mediastinal widening, pneumonia or pneumothorax. Chest CT shows a right lung PE, the embolus is the same as noted a few days ago, there is no worsening of the pulmonary embolism. There was no pneumonia seen on CT scan. By our testing, there was no evidence for pancreatitis. The patient presents with central chest pain which has not really responded well to nitroglycerin. The pain does seem reproducible on my exam. The patient 's workup here suggests that his pulmonary embolus is stable. The patient was given IV saline, IV Zofran IV morphine, he feels markedly improved, his heart rate is improved. He is not hypoxic or toxic, he is not febrile. He is being [facility] to the [facility], he can continue his care as before. I suspect the chest pain is musculoskeletal. Consults Time Called: 2022 Consulting Physician: Dr. Garcia, radiologist with [facility] Returned Call: 2023 I discussed the patient's case with Dr. Garcia, radiologist with [facility]. He reported the identified pulmonary embolus is the same exact one as before and it has not worsened. Impression Primary Impression: Central chest pain Additional Impression: History of pulmonary embolus (PE) Scribe Attestation The scribe's documentation has been prepared under my direction and personally reviewed by me in its entirety. I confirm that the note above accurately reflects all work, treatment, procedures, and medical decision making performed by me. Departure Information Dispostion Home / Self-Care Referrals Rito ROSA (PCP) Forms HOME CARE DOCUMENTATION FORM, IMPORTANT VISIT INFORMATION Patient Instructions My [facility] Additional Instructions stay well hydrated all care and meds as before heart testing was ok today the clot in the lung is the same--it has not worsened Problem Qualifiers
--- NOTE | 2017-03-02 20:14 | DIAGNOSTIC IMAGING REPORT ---
ADDENDUM This study is now compared to a prior study dated 02/24/2017. On the right lower lobe filling defect is unchanged. There are no new or interval findings. The small embolus is considered unchanged and therefore now chronic. Electronically signed by: See Garcia M.D. 03/02/2017 8:24 PM Dictated Date/Time: 03/02/2017 8:23 PM ORIGINAL REPORT CHEST CTA for PULMONARY ARTERIES CT DOSE: 453.69 mGy.cm HISTORY: Chest pain dyspnea TECHNIQUE: Multiaxial CT images of the chest were performed following the intravenous administration of contrast to evaluate the pulmonary arteries. Maximal intensity projection images were also obtained. COMPARISON STUDY: None. FINDINGS: Thoracic aorta shows minimal atherosclerotic change and ectasia. No evidence for aneurysm or dissection. There is a small thrombus within a second order right lower lobe vessel. This is best seen on transaxial image 40. There is no main central pulmonary embolus. There is moderate fullness left hilum compared to the right. There are findings of a mild post obstructive atelectatic and/or infiltrative change medial aspect left upper lobe. This is improved, however as compared to a prior PET/CT scan dated 12/08/2016.. IMPRESSION: 1. Study is positive for a second order embolus involving the mid aspect of the right lower lobe. 2. Improving size of a left hilar mass with stable to improved post obstructive atelectatic change medial aspect left upper lobe. 3. No evidence for a major central pulmonary embolus. Electronically signed by: See Garcia M.D. 03/02/2017 8:12 PM Dictated Date/Time: 03/02/2017 8:07 PM
[2017-03-02 21:21] VITALS: BP 148/91; PULSE 93; O2SAT 99
[2017-07-05] MEDS ORDERED: MCRK20 PO (08:51)
[2017-07-05] MEDS ORDERED: DXM1 PO (08:51)
[2017-07-05] MEDS ORDERED: MRLP17 PO (08:51)
[2017-07-05] MEDS ORDERED: LPR25 PO (08:51)
== END 2017-03-02 21:15 | disposition home or self-care (01) ==
LOC: EDBD → C.EDC 18:22
DX: R07.89 Other chest pain (principal); Z86.711 Personal history of pulmonary embolism; Z85.118 Personal history of other malignant neoplasm of bronchus and lung; Z87.891 Personal history of nicotine dependence; Z79.4 Long term (current) use of insulin; Z79.01 Long term (current) use of anticoagulants; Z79.899 Other long term (current) drug therapy; Z82.49 Family history of ischemic heart disease and other diseases of the circulatory system; Z83.79 Family history of other diseases of the digestive system; Z82.3 Family history of stroke

== ENCOUNTER 2017-03-18 11:24 | Emergency (ER) | payer OTHER ==
[~2017-03-18] VITALS: Ht 182.9 cm; Wt 81.6 kg
[~2017-03-18 11:24] MED LIST changes: -ONDA4TAB46 PO; +ONDA8TAB6 PO; +WARF5TAB7 PO
[2017-03-18 11:30] VITALS: TEMP 36.7; Ht 182.9 cm; Wt 81.6 kg
[2017-03-18] MEDS ORDERED: MoRPHine SULFATE 4 MG/ML 1 ML CARP\\VIAL IV STA (12:08)
[2017-03-18] MEDS ORDERED: ONDANSETRON INJ 2 MG/ML 2 ML VIAL IV STA (12:08)
[2017-03-18] MEDS ORDERED: SODIUM CHLORIDE 0.9% 1000ML 1,000 ML IV STA (12:08)
[2017-03-18] MEDS ORDERED: OPTIRAY 320 IV PRN (12:15)
[2017-03-18] MEDS ORDERED: EMOL-31 TOP (12:26)
[2017-03-18] MEDS ORDERED: ACET-749 PO (12:26)
[2017-03-18] MEDS ORDERED: MELO15TA10 PO (12:26)
[2017-03-18] MEDS ORDERED: WARF7.5T PO (12:32)
[2017-03-18] MEDS ORDERED: PROM1TAB6 PO (12:32)
--- NOTE | 2017-03-18 12:32 | DIAGNOSTIC IMAGING REPORT ---
CHEST ONE VIEW PORTABLE CLINICAL HISTORY: Abdominal pain, hx PE pain COMPARISON STUDY: 03/02/2017 FINDINGS: Central catheter ends. Cava. Lungs are clear. Minimal scarring left base. No focal infiltrate. IMPRESSION: Chronic change. No acute process. Electronically signed by: See Garcia M.D. 03/18/2017 12:31 PM Dictated Date/Time: 03/18/2017 12:30 PM
[2017-03-18] MEDS ORDERED: OXYC1TAB3 PO (12:35)
[2017-03-18 12:44] VITALS: O2SAT 97
[2017-03-18 12:47] LABS: BASO % 0.9 %; BASO ABS # 0.04 K/uL (0-0.2); COMPLETE YES; EOS % 0.2 %; HEMATOCRIT 29.7 % (42-52); IG% 0.5 %; LYMPH % 40.4 %; LYMPH ABS # 1.71 K/uL (1.2-3.4); MEAN CELL VOLUME 91.7 fL (80-100); MEAN CORPUSCULAR HEMOGLOBIN 32.7 pg (25-34); MEAN CORPUSCULAR HGB CONC 35.7 g/dl (32-36); MEAN PLATELET VOLUME 9.6 fL (7.4-10.4); PLATELET COUNT 226 K/uL (130-400); RED BLOOD COUNT 3.24 M/uL (4.7-6.1); WHITE BLOOD COUNT 4.23 K/uL (4.8-10.8)
[2017-03-18 12:59] LABS: INR 1.6 (0.9-1.1); PARTIAL THROMBOPLASTIN RATIO 1.1; PROTHROMBIN TIME (PATIENT) 17.7 SECONDS (9.0-12.0)
[2017-03-18 13:03] LABS: CALCIUM 8.9 mg/dl (8.5-10.1)
[2017-03-18 13:06] LABS: ALT/SGPT 99 U/L (12-78); AST/SGOT 36 U/L (15-37); BLOOD UREA NITROGEN 8 mg/dl (7-18); BUN/CREATININE RATIO 11.4 (10-20); CARBON DIOXIDE 23 mmol/L (21-32); CHLORIDE 104 mmol/L (98-107); CREATININE 0.73 mg/dl (0.60-1.40); GLUCOSE 95 mg/dl (70-99); MAGNESIUM 1.8 mg/dl (1.8-2.4); POTASSIUM 3.8 mmol/L (3.5-5.1); SODIUM 136 mmol/L (136-145)
[2017-03-18 13:10] LABS: ALB/GLOB RATIO 1.1 (0.9-2); ALKALINE PHOSPHATASE 59 U/L (45-117)
--- NOTE | 2017-03-18 13:44 | DIAGNOSTIC IMAGING REPORT ---
CT SCAN OF THE ABDOMEN AND PELVIS WITH IV CONTRAST CLINICAL HISTORY: Epigastric abdominal pain. Vomiting. History of lung cancer. COMPARISON STUDY: PET/CT dated 12/08/2016. TECHNIQUE: Following the IV administration of 91 cc of Optiray 320, CT scan of the abdomen and pelvis is performed from the lung bases to the proximal femora. Images are reviewed in the axial, sagittal, and coronal planes. IV contrast was administered without complication. Automated dose control exposure was utilized. CT DOSE: 360.60 mGy.cm FINDINGS: Lung bases: The heart is normal in size and without pericardial effusion. Emphysematous change is seen at the lung bases. There is dependent atelectasis. No airspace consolidation or pleural effusion is identified. There is a tiny hiatal hernia. Liver: The contrast-enhanced liver is enlarged, measuring 18.7 cm in length. The liver demonstrates diffusely diminished attenuation consistent with hepatic steatosis. There is no intrahepatic biliary ductal dilatation. The hepatic veins and portal veins are patent. Gallbladder: Unremarkable. Spleen: Normal in size and attenuation. Pancreas: Unremarkable. Adrenal glands: A 1.4 cm indeterminant right adrenal nodule is unchanged. The left adrenal gland is normal in appearance. Kidneys: The contrast enhanced kidneys are normal in size and without hydronephrosis. The kidneys enhance symmetrically. Abdominal vasculature: The abdominal aorta is normal in course and caliber noting moderate atherosclerotic calcification. Bowel: The small bowel and colon are normal in course and caliber. There are scattered colonic diverticula without CT evidence of acute diverticulitis. The appendix is well-visualized and normal. Peritoneum: There is no intraperitoneal free air or abdominal ascites. There is a small fat-containing umbilical hernia. Lymphadenopathy: None. Pelvic viscera: The prostate gland is mildly enlarged and heterogeneous, measuring up to 4.5 cm in transverse diameter. The bladder is normal as visualized. Skeletal structures: The skeletal structures are osteopenic. No lytic or blastic lesions are seen. There is mild lumbosacral spondylosis. A disc herniation is suggested at L4-L5. A large posterior disc osteophyte complex is seen at L2-L3. IMPRESSION: 1. There are no acute infectious or inflammatory findings in the abdomen or pelvis. 2. Emphysema. 3. An indeterminant right adrenal nodule has not significantly changed from the 12/08/2016 PET/CT. 4. Mild prostatomegaly. 5. Suspect a large disc herniation at L4-L5. 6. Hepatomegaly and hepatic steatosis. 7. Additional findings as above. Electronically signed by: Morris Arreola M.D. 03/18/2017 1:42 PM Dictated Date/Time: 03/18/2017 1:36 PM
--- NOTE | 2017-03-18 15:52 | EMERGENCY ROOM VISIT NOTE ---
History First contact with patient: 11:55 Chief Complaint: NAUSEA Stated Complaint: ABS PAIN/NAUSEA/VOMITING Nursing Triage Summary: Pt arrives to ER via ALS from [facility] with c/o Nausea/vomitting x2 days. Pt has throat CA with mets and was diagnosed 1 month ago with blood clots in the lung (on blood thinners). Pt also c/o mid abdominal pain rated 5/10. Denies any diarrhea. Pts BP this AM was in the 60's systolic, was given a 500 ml NSS bolus , BP now in the 130's systolic per EMS reports. History of Present Illness The patient is a 61 year old male who presents to the Emergency Room via ambulance from [facility] accompanied by 2 correctional officers with complaints of "abdominal pain, nausea, vomiting". The patient states that this is his second visit for similar symptoms. The patient states that most recently , his abdominal pain began Thursday, just superior to the periumbilical region. He notes a tingling sensation in the abdomen. He has been trying to eat and continues to vomit. There is associated nausea. He states he has not been able to eat well over the past 4 days. He currently is on warfarin/Coumadin for a pulmonary embolism with his last INR being 1.2 this past Thursday. He denies any hematemesis. His last bowel movement was 3-4 days ago. He denies any melena or hematochezia. He has had minimal urine output. He rates the generalized abdominal pain as a 5/10. He denies any chest pain or shortness of breath. For the pain he has been taking 5 mg of oxycodone immediate release 3 times daily. He states the pain meds are not working now. Review of Systems A complete 6-point Review of Systems was discussed with the patient, with pertinent positives and negatives listed in the History of Present Illness. All remaining Review of Systems questions can be considered negative unless otherwise specified. Past Medical/Surgical History Medical Problems: (1) Pulmonary embolism (2) Small cell lung carcinoma Family History FH: lung cancer FH: myocardial infarction FH: pancreatic cancer FH: stroke Social History Smoking Status: Former Smoker Marital Status: single Housing Status: other Occupation Status: other Current/Historical Medications Scheduled Ciclesonide (Alvesco), 1 PUFF INH BID Insulin Human Regular (Humulin R), SQ UD Ipratropium-Albuterol (Duoneb), 1 TREATMENT INH Q4H Meloxicam (Mobic), 15 MG PO DAILY Omeprazole (Prilosec), 40 MG PO BID Warfarin Sodium (Coumadin), 7.5 MG PO HS Scheduled PRN Acetaminophen/Codeine (Tylenol W/Codeine #3), 2 TAB PO TID PRN for Pain Albuterol Hfa (Ventolin Hfa), 2 PUFFS INH QID PRN for RN Docusate Sodium (Colace), 100 MG PO BID PRN for Constipation Oxycodone Immediate Rel Tab (Roxicodone Ir), 5 MG PO TID PRN for Pain Promethazine (Phenergan), 50 MG PO QID PRN for Nausea or Vomiting Allergies Coded Allergies: Wasp (Verified Allergy, Severe, ANAPHYLAXIS, 03/18/17) Physical Exam Vital Signs Date Time Temp Pulse Resp B/P Pulse Ox O2 Delivery O2 Flow Rate FiO2 03/18/17 16:05 98 18 132/82 95 03/18/17 15:00 98 16 143/101 03/18/17 13:41 89 16 114/85 97 Room Air 03/18/17 12:53 92 03/18/17 12:44 97 Room Air 03/18/17 12:42 94 16 146/92 99 Room Air 03/18/17 11:30 36.7 88 16 126/88 97 Room Air Physical Exam VITAL SIGNS - Vital signs and nursing notes were reviewed. Afebrile, normotensive, non-tachycardic and saturating well on room air 97%. GENERAL -61-year-old male appearing his stated age who is in no acute distress. Communicates well with provider and answers questions appropriately. SKIN - Without rashes. The skin overlying the abdomen is unremarkable. HEAD - NC/AT. EYES - Sclera anicteric. Palpebral conjunctiva pink and moist with no injection noted. EARS - No deformities of external structures noted on gross examination bilaterally. NOSE - Midline and without cyanosis. MOUTH/OROPHARYNX - Without perioral cyanosis. Buccal mucosa pink and moist and without leukoplakia. Tongue midline with equal elevation of palate bilaterally. No tonsillar hypertrophy, erythema, or exudates noted. NECK - Neck with FROM. Supple to palpation. LUNGS - Chest wall symmetric without accessory muscle use, intercostals retractions, or central cyanosis. Normal vesicular breath sounds CTA B/L. No wheezes, rales, or rhonchi appreciated. CARDIAC - RRR with S1/S2. No murmur, rubs, or gallops appreciated. ABDOMEN - Abdominal contour without pulsations or visible masses. BS normoactive all four quadrants. There is generalized periumbilical tenderness. No palpable masses, hepatosplenomegaly, or ascites noted. EXTREMITIES - No clubbing or peripheral cyanosis. No pretibial edema present. + 5/5 strength noted in UE/LE bilaterally. NEUROLOGIC - Cranial nerves II through XII grossly intact. PSYCH Pt is very pleasant and interacts well with examiner. Medical Decision & Procedures ER Provider Diagnostic Interpretation: CT SCAN OF THE ABDOMEN AND PELVIS WITH IV CONTRAST CLINICAL HISTORY: Epigastric abdominal pain. Vomiting. History of lung cancer. COMPARISON STUDY: PET/CT dated 12/08/2016. TECHNIQUE: Following the IV administration of 91 cc of Optiray 320, CT scan of the abdomen and pelvis is performed from the lung bases to the proximal femora. Images are reviewed in the axial, sagittal, and coronal planes. IV contrast was administered without complication. Automated dose control exposure was utilized. CT DOSE: 360.60 mGy.cm FINDINGS: Lung bases: The heart is normal in size and without pericardial effusion. Emphysematous change is seen at the lung bases. There is dependent atelectasis. No airspace consolidation or pleural effusion is identified. There is a tiny hiatal hernia. Liver: The contrast-enhanced liver is enlarged, measuring 18.7 cm in length. The liver demonstrates diffusely diminished attenuation consistent with hepatic steatosis. There is no intrahepatic biliary ductal dilatation. The hepatic veins and portal veins are patent. Gallbladder: Unremarkable. Spleen: Normal in size and attenuation. Pancreas: Unremarkable. Adrenal glands: A 1.4 cm indeterminant right adrenal nodule is unchanged. The left adrenal gland is normal in appearance. Kidneys: The contrast enhanced kidneys are normal in size and without hydronephrosis. The kidneys enhance symmetrically. Abdominal vasculature: The abdominal aorta is normal in course and caliber noting moderate atherosclerotic calcification. Bowel: The small bowel and colon are normal in course and caliber. There are scattered colonic diverticula without CT evidence of acute diverticulitis. The appendix is well-visualized and normal. Peritoneum: There is no intraperitoneal free air or abdominal ascites. There is a small fat-containing umbilical hernia. Lymphadenopathy: None. Pelvic viscera: The prostate gland is mildly enlarged and heterogeneous, measuring up to 4.5 cm in transverse diameter. The bladder is normal as visualized. Skeletal structures: The skeletal structures are osteopenic. No lytic or blastic lesions are seen. There is mild lumbosacral spondylosis. A disc herniation is suggested at L4-L5. A large posterior disc osteophyte complex is seen at L2-L3. IMPRESSION: 1. There are no acute infectious or inflammatory findings in the abdomen or pelvis. 2. Emphysema. 3. An indeterminant right adrenal nodule has not significantly changed from the 12/08/2016 PET/CT. 4. Mild prostatomegaly. 5. Suspect a large disc herniation at L4-L5. 6. Hepatomegaly and hepatic steatosis. 7. Additional findings as above. Electronically signed by: Morris Arreola M.D. 03/18/2017 1:42 PM Dictated Date/Time: 03/18/2017 1:36 PM CHEST ONE VIEW PORTABLE CLINICAL HISTORY: Abdominal pain, hx PE pain COMPARISON STUDY: 03/02/2017 FINDINGS: Central catheter ends. Cava. Lungs are clear. Minimal scarring left base. No focal infiltrate. IMPRESSION: Chronic change. No acute process. Electronically signed by: See Garcia M.D. 03/18/2017 12:31 PM Dictated Date/Time: 03/18/2017 12:30 PM Laboratory Results 03/18/17 12:40 Red Blood Count 3.24, Mean Corpuscular Volume 91.7, Mean Corpuscular Hemoglobin 32.7, Mean Corpuscular Hemoglobin Concent 35.7, Mean Platelet Volume 9.6, Neutrophils (%) (Auto) 50.0, Lymphocytes (%) (Auto) 40.4, Monocytes (%) (Auto) 8.0, Eosinophils (%) (Auto) 0.2, Basophils (%) (Auto) 0.9, Neutrophils # (Auto) 2.11, Lymphocytes # (Auto) 1.71, Monocytes # (Auto) 0.34, Eosinophils # (Auto) 0.01, Basophils # (Auto) 0.04 03/18/17 12:40 Test 03/18/17 12:40 03/18/17 15:24 White Blood Count 4.23 K/uL (4.8-10.8) Red Blood Count 3.24 M/uL (4.7-6.1) Hemoglobin 10.6 g/dL (14.0-18.0) Hematocrit 29.7 % (42-52) Mean Corpuscular Volume 91.7 fL (80-100) Mean Corpuscular Hemoglobin 32.7 pg (25-34) Mean Corpuscular Hemoglobin Concent 35.7 g/dl (32-36) Platelet Count 226 K/uL (130-400) Mean Platelet Volume 9.6 fL (7.4-10.4) Neutrophils (%) (Auto) 50.0 % Lymphocytes (%) (Auto) 40.4 % Monocytes (%) (Auto) 8.0 % Eosinophils (%) (Auto) 0.2 % Basophils (%) (Auto) 0.9 % Neutrophils # (Auto) 2.11 K/uL (1.4-6.5) Lymphocytes # (Auto) 1.71 K/uL (1.2-3.4) Monocytes # (Auto) 0.34 K/uL (0.11-0.59) Eosinophils # (Auto) 0.01 K/uL (0-0.5) Basophils # (Auto) 0.04 K/uL (0-0.2) RDW Standard Deviation 56.5 fL (36.4-46.3) RDW Coefficient of Variation 16.8 % (11.5-14.5) Immature Granulocyte % (Auto) 0.5 % Immature Granulocyte # (Auto) 0.02 K/uL (0.00-0.02) Prothrombin Time 17.7 SECONDS (9.0-12.0) Prothromb Time International Ratio 1.6 (0.9-1.1) Activated Partial Thromboplast Time 29.3 SECONDS (21.0-31.0) Partial Thromboplastin Ratio 1.1 Anion Gap 9.0 mmol/L (3-11) Est Creatinine Clear Calc Drug Dose 119.6 ml/min Estimated GFR () 117.7 Estimated GFR (Non- 101.5 BUN/Creatinine Ratio 11.4 (10-20) Calcium Level 8.9 mg/dl (8.5-10.1) Magnesium Level 1.8 mg/dl (1.8-2.4) Total Bilirubin 0.8 mg/dl (0.2-1) Aspartate Amino Transf (AST/SGOT) 36 U/L (15-37) Alanine Aminotransferase (ALT/SGPT) 99 U/L (12-78) Alkaline Phosphatase 59 U/L (45-117) Troponin I < 0.015 ng/ml (0-0.045) Total Protein 6.4 gm/dl (6.4-8.2) Albumin 3.3 gm/dl (3.4-5.0) Globulin 3.1 gm/dl (2.5-4.0) Albumin/Globulin Ratio 1.1 (0.9-2) Lipase 97 U/L (73-393) Bedside Troponin I 0.000 ng/ml (0-0.045) Medications Administered Medications (Trade) Dose Ordered Sig/Elidia Route Start Time Stop Time Status Last Admin Dose Admin Morphine Sulfate (MoRPHine SULFATE INJ) 4 mg NOW STAT IV 03/18/17 12:08 03/18/17 12:11 DC 03/18/17 12:55 4 MG Ondansetron HCl 4 mg 4 mg NOW STAT IV 03/18/17 12:08 03/18/17 12:11 DC 03/18/17 12:55 4 MG Sodium Chloride (Nss 1000ml) 1,000 ml @ 999 mls/hr Q1H1M STAT IV 03/18/17 12:08 03/18/17 13:08 DC 03/18/17 12:54 999 MLS/HR Medical Decision Patient was seen and evaluated as above. After getting a thorough history and physical examination IV access was initiated and the above workup was performed. Subjectively the patient supposedly had systolic blood pressure in the 60s prior to arrival. Upon his presentation his vital signs are stable, this may be secondary to the fluid bolus he received in route to our facility. He is nontoxic in appearance. He communicates well. He was given 4 mg of morphine, and 4 mg of Zofran for his pain. He was hydrated with a liter of normal saline. CBC reveals slightly decreased white blood cell count of 4.23, with a hemoglobin decreased to 10.6. This has dropped roughly 2 points over the past few weeks. Hemoccult test was obtained after verifying patient consent and in the presence of the corrections officers, and was found to be negative. INR was 1.6. CMP reveals no significant electrolyte slight abnormality. ALT elevated at 99. Point care troponin 0.000. Lipase is within normal limits. Chest x-ray was obtained reveals no acute process. An IV contrasted CT scan of the abdomen was obtained, I elected to not obtain oral contrast as the patient has been vomiting. This is negative for acute process. I suspect the patient is likely experiencing a viral GI process. EKG reveals sinus rhythm, with occasional PVCs. Rate of 90 bpm. No emergent ectopy or ischemic change. Patient was reevaluated and was feeling well. He was then given water and Gatorade and was able tolerate by mouth fluids. He then requested food. He started with saltine crackers and tolerated these well. I then elected to give him a turkey sandwich of which she was able to eat without difficulty. The case was discussed with my attending. At this time I do believe that the patient is stable for discharge. Repeat troponin was unchanged. I recommended the patient follow up with the [facility], for further evaluation and management of his symptoms. At this time I do not suspect any emergent or surgical process to his complaint. He was educated upon today's findings, and was discharged to his home facility in good condition. The patient did ask if I would increase his OxyIR prescription. I informed him that I do not prescriptions for the [facility], and make recommendations. I informed him that increasing this to much could actually make his symptoms worse. In evaluation treatment this patient the following differential diagnoses were entertained: [place], PE, pancreatitis, bowel obstruction, mesenteric ischemia, drug- seeking behavior, among others. Impression Primary Impression: Abdominal pain Additional Impression: Nausea & vomiting Departure Information Dispostion Home / Self-Care Referrals Rito ROSA (PCP) Patient Instructions My [facility] Additional Instructions You have been treated in the Emergency Department your Abdominal Pain. Laboratory results and imaging studies have ruled out any emergent causes for your abdominal pain which would warrant admission or surgery. Recommendations are to continue current medications. Please begin with a bland diet and slowly progress. Please drink plenty of fluids, and closely monitor blood pressure. Please follow-up with the [facility] for recheck of your current condition as soon as able. Return to the emergency department if your symptoms persist despite treatment plan outlined above or if the following symptoms occur: increased fevers, chills , worsening nausea/vomiting, blood in your stool or urine. Please return to the emergency department with any new/concerning symptoms. Please refer to imaging results: CT SCAN OF THE ABDOMEN AND PELVIS WITH IV CONTRAST CLINICAL HISTORY: Epigastric abdominal pain. Vomiting. History of lung cancer. COMPARISON STUDY: PET/CT dated 12/08/2016. TECHNIQUE: Following the IV administration of 91 cc of Optiray 320, CT scan of the abdomen and pelvis is performed from the lung bases to the proximal femora. Images are reviewed in the axial, sagittal, and coronal planes. IV contrast was administered without complication. Automated dose control exposure was utilized. CT DOSE: 360.60 mGy.cm FINDINGS: Lung bases: The heart is normal in size and without pericardial effusion. Emphysematous change is seen at the lung bases. There is dependent atelectasis. No airspace consolidation or pleural effusion is identified. There is a tiny hiatal hernia. Liver: The contrast-enhanced liver is enlarged, measuring 18.7 cm in length. The liver demonstrates diffusely diminished attenuation consistent with hepatic steatosis. There is no intrahepatic biliary ductal dilatation. The hepatic veins and portal veins are patent. Gallbladder: Unremarkable. Spleen: Normal in size and attenuation. Pancreas: Unremarkable. Adrenal glands: A 1.4 cm indeterminant right adrenal nodule is unchanged. The left adrenal gland is normal in appearance. Kidneys: The contrast enhanced kidneys are normal in size and without hydronephrosis. The kidneys enhance symmetrically. Abdominal vasculature: The abdominal aorta is normal in course and caliber noting moderate atherosclerotic calcification. Bowel: The small bowel and colon are normal in course and caliber. There are scattered colonic diverticula without CT evidence of acute diverticulitis. The appendix is well-visualized and normal. Peritoneum: There is no intraperitoneal free air or abdominal ascites. There is a small fat-containing umbilical hernia. Lymphadenopathy: None. Pelvic viscera: The prostate gland is mildly enlarged and heterogeneous, measuring up to 4.5 cm in transverse diameter. The bladder is normal as visualized. Skeletal structures: The skeletal structures are osteopenic. No lytic or blastic lesions are seen. There is mild lumbosacral spondylosis. A disc herniation is suggested at L4-L5. A large posterior disc osteophyte complex is seen at L2-L3. IMPRESSION: 1. There are no acute infectious or inflammatory findings in the abdomen or pelvis. 2. Emphysema. 3. An indeterminant right adrenal nodule has not significantly changed from the 12/08/2016 PET/CT. 4. Mild prostatomegaly. 5. Suspect a large disc herniation at L4-L5. 6. Hepatomegaly and hepatic steatosis. 7. Additional findings as above. Electronically signed by: Morris Arreola M.D. 03/18/2017 1:42 PM Dictated Date/Time: 03/18/2017 1:36 PM CHEST ONE VIEW PORTABLE CLINICAL HISTORY: Abdominal pain, hx PE pain COMPARISON STUDY: 03/02/2017 FINDINGS: Central catheter ends. Cava. Lungs are clear. Minimal scarring left base. No focal infiltrate. IMPRESSION: Chronic change. No acute process. Electronically signed by: See Garcia M.D. 03/18/2017 12:31 PM Dictated Date/Time: 03/18/2017 12:30 PM Problem Qualifiers Primary Impression: Abdominal pain Abdominal location: periumbilical Qualified Codes: R10.33 - Periumbilical pain
[2017-03-18 16:05] VITALS: BP 132/82; PULSE 98; O2SAT 95
[2017-07-05] MEDS ORDERED: MCRK20 PO (08:51)
[2017-07-05] MEDS ORDERED: MRLP17 PO (08:51)
[2017-07-05] MEDS ORDERED: DXM1 PO (08:51)
[2017-07-05] MEDS ORDERED: LPR25 PO (08:51)
== END 2017-03-18 16:06 | disposition home or self-care (01) ==
LOC: EDBD → C.EDC 11:27
DX: R10.84 Generalized abdominal pain (principal); R11.2 Nausea with vomiting, unspecified; Z85.118 Personal history of other malignant neoplasm of bronchus and lung; Z86.711 Personal history of pulmonary embolism; Z87.891 Personal history of nicotine dependence; Z82.49 Family history of ischemic heart disease and other diseases of the circulatory system; Z83.79 Family history of other diseases of the digestive system; Z82.3 Family history of stroke; Z79.01 Long term (current) use of anticoagulants; Z79.4 Long term (current) use of insulin; Z79.899 Other long term (current) drug therapy; Z91.030 Bee allergy status

== ENCOUNTER → 2017-03-28 | Outpatient (CLI) | payer OTHER ==
[~2017-03-28] MED LIST changes: +ACET-749 PO; +DXM1 PO; -ENOX120I SQ; +LPR25 PO; +MCRK20 PO; +MELO15TA10 PO; -MELO7.5T5 PO; +MRLP17 PO; -ONDA8TAB6 PO; +OXYC1TAB3 PO; +PROM1TAB6 PO; +WARF4TAB8 PO; +WARF7.5T PO
[2017-03-28 16:13] LABS: HEMATOCRIT 36.6 % (42-52); MEAN CELL VOLUME 95.3 fL (80-100); MEAN PLATELET VOLUME 10.1 fL (7.4-10.4); PLATELET COUNT 444 K/uL (130-400); RED BLOOD COUNT 3.84 M/uL (4.7-6.1); WHITE BLOOD COUNT 3.57 K/uL (4.8-10.8)
[2017-03-28 16:15] LABS: MEAN CORPUSCULAR HGB CONC 33.6 g/dl (32-36)
[2017-03-28 16:25] LABS: ALB/GLOB RATIO 1.5 (0.9-2); ALKALINE PHOSPHATASE 56 U/L (45-117); ALT/SGPT 49 U/L (12-78); AST/SGOT 32 U/L (15-37); BLOOD UREA NITROGEN 5 mg/dl (7-18); BUN/CREATININE RATIO 5.7 (10-20); CALCIUM 9.2 mg/dl (8.5-10.1); CARBON DIOXIDE 25 mmol/L (21-32); CHLORIDE 103 mmol/L (98-107); CREATININE 0.84 mg/dl (0.60-1.40); GLUCOSE 110 mg/dl (70-99); POTASSIUM 4.5 mmol/L (3.5-5.1); SODIUM 140 mmol/L (136-145)
== END ==
LOC: C.LABSPEC 09:46
PROVIDERS: ATTEND Internal Medicine
DX: R53.83 Other fatigue (principal); R11.10 Vomiting, unspecified; E87.8 Other disorders of electrolyte and fluid balance, not elsewhere classified

== ENCOUNTER 2017-07-02 09:14 | Inpatient (IN) | payer OTHER ==
[~2017-07-02] VITALS: Ht 177.8 cm; Wt 65.1 kg
[2017-07-02] VITALS (8 sets, daily range): BP systolic 166–203; BP diastolic 104–138; PULSE 78–91; TEMP 36.5–36.6; O2SAT 94–99; Ht 177.8 cm; Wt 65.1 kg
[~2017-07-02 09:14] MED LIST changes: -DXM1 PO; -LPR25 PO; -MCRK20 PO; -MRLP17 PO; -WARF4TAB8 PO; -WARF5TAB7 PO
[2017-07-02] MEDS ORDERED: SODIUM CHLORIDE 0.9% 1000ML 1,000 ML IV SCH (09:28)
[2017-07-02] MEDS ORDERED: WARF5TAB7 PO (09:30)
[2017-07-02] MEDS ORDERED: WARF4TAB8 PO (09:30)
--- NOTE | 2017-07-02 09:30 | EMERGENCY ROOM VISIT NOTE ---
History Report prepared by Aflonso: Elsi Lui Under the Supervision of: Dr. Carlos Henning M.D. First contact with patient: 09:22 Stated Complaint: ALTERED MENTAL STATUS History of Present Illness The patient is a 62 year old male who presents to the Emergency Room with a persistent altered mental status that began two days ago. Per records, the patient has a history of lung cancer with mets to the brain. Records indicate that the patient had his mets removed from the brain, but still has the cancer in his lungs. Records report that the patient's last chemotherapy treatment was one month ago. Records report that the patient is on chronic steroids for persistent vomiting. Records additionally note that the patient is on Coumadin for PEs. Per the guards, the patient has not been responding over the past two days. The history is limited secondary to the patient's altered mental status. 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 Past Medical & Surgical Medical Problems: (1) Pulmonary embolism (2) Small cell lung carcinoma Family History FH: lung cancer FH: myocardial infarction FH: pancreatic cancer FH: stroke Social History Smoking Status: Former Smoker Marital Status: single Housing Status: other Occupation Status: other Current/Historical Medications Scheduled Insulin Human Regular (Humulin R), SQ UD Ipratropium-Albuterol (Duoneb), 1 TREATMENT INH Q4H Warfarin Sod (Jantoven), 4 MG PO HS Warfarin Sod (Jantoven), 5 MG PO HS Scheduled PRN Albuterol Hfa (Ventolin Hfa), 2 PUFFS INH QID PRN for RN Allergies Coded Allergies: Wasp (Verified Allergy, Severe, ANAPHYLAXIS, 07/02/17) Physical Exam Vital Signs Date Time Temp Pulse Resp B/P (MAP) Pulse Ox O2 Delivery O2 Flow Rate FiO2 07/02/17 11:49 88 185/125 07/02/17 11:45 94 Room Air 07/02/17 11:14 84 14 191/126 94 Room Air 07/02/17 10:53 92 18 175/136 94 Room Air 07/02/17 09:25 103 07/02/17 09:25 96 Room Air 07/02/17 09:25 36.4 98 18 168/118 96 Room Air Physical Exam GENERAL: Patient is a healthy-appearing well-nourished male HEAD: Normocephalic atraumatic EYES: Ocular movements intact pupils equal and react to light OROPHARYNX mucous membranes are moist no exudates present no erythema or edema present NECK: Supple no nuchal rigidity CHEST: Good equal expansion, port in place. LUNGS: Clear and equal to auscultation CARDIAC: Normal S1 and S2 ABDOMEN: Soft nontender no guarding BACK: No CVA tenderness EXTREMITIES: No pain upon palpation normal muscle strength in all groups no clubbing cyanosis or edema NEURO: Patient is following some commands, is nonverbal. Medical Decision & Procedures ER Provider Diagnostic Interpretation: Radiology results as stated below per my review and radiologist interpretation: CT SCAN OF THE BRAIN WITHOUT IV CONTRAST CLINICAL HISTORY: Change in mental status. Stroke like symptoms. History of metastatic lung cancer. COMPARISON STUDY: MRI of the brain from 611 dated 12/12/2016. TECHNIQUE: Unenhanced axial CT scan of the brain is performed from the vertex to the skull base. CT DOSE: 788.63 mGycm FINDINGS: Brain parenchyma: There are age-related involutional changes noting mild subcortical and periventricular microangiopathic change. There is no hemorrhage, mass effect, or evidence of acute territorial ischemia by CT criteria. Grimaldo-white matter is preserved. No extra-axial fluid collection is seen. Ventricles, sulci, cisterns: Prominent secondary to involutional change. Intracranial vasculature: There is atherosclerotic calcification of the cavernous carotid and vertebral arteries. Calvarium: Unremarkable. Sinuses and mastoids: The visualized paranasal sinuses are clear. The mastoid air cells are well pneumatized. Orbits: The bony orbits are grossly intact. IMPRESSION: 1. There is no hemorrhage, mass effect, or evidence of acute territorial ischemia by CT criteria. 2. Intracranial metastases seen by MRI on 12/12/[address]. Electronically signed by: Morris Arreola M.D. 07/02/2017 10:15 AM Dictated Date/Time: 07/02/2017 10:11 AM CHEST ONE VIEW PORTABLE CLINICAL HISTORY: Stroke mental status change COMPARISON STUDY: 03/18/2017 FINDINGS: Lungs remain clear. Central catheter remains in superior vena cava. Diaphragms are smooth. IMPRESSION: No acute process. The above report was generated using voice recognition software. It may contain grammatical, syntax or spelling errors. Electronically signed by: See Garcia M.D. 07/02/2017 9:55 AM Dictated Date/Time: 07/02/2017 9:55 AM Laboratory Results 07/02/17 09:50 Red Blood Count 4.05, Mean Corpuscular Volume 93.1, Mean Corpuscular Hemoglobin 34.6, Mean Corpuscular Hemoglobin Concent 37.1, Mean Platelet Volume 9.2, Neutrophils (%) (Auto) 75.8, Lymphocytes (%) (Auto) 13.6, Monocytes (%) (Auto) 9.1, Eosinophils (%) (Auto) 0.4, Basophils (%) (Auto) 0.1, Neutrophils # (Auto) 7.72, Lymphocytes # (Auto) 1.39, Monocytes # (Auto) 0.93, Eosinophils # (Auto) 0.04, Basophils # (Auto) 0.01 07/02/17 09:50 Test 07/02/17 09:46 07/02/17 09:50 Bedside Prothrombin Time INR 4.7 (0.9-1.1) Bedside Glucose 130 mg/dl (70-99) White Blood Count 10.19 K/uL (4.8-10.8) Red Blood Count 4.05 M/uL (4.7-6.1) Hemoglobin 14.0 g/dL (14.0-18.0) Hematocrit 37.7 % (42-52) Mean Corpuscular Volume 93.1 fL (80-100) Mean Corpuscular Hemoglobin 34.6 pg (25-34) Mean Corpuscular Hemoglobin Concent 37.1 g/dl (32-36) Platelet Count 263 K/uL (130-400) Mean Platelet Volume 9.2 fL (7.4-10.4) Neutrophils (%) (Auto) 75.8 % Lymphocytes (%) (Auto) 13.6 % Monocytes (%) (Auto) 9.1 % Eosinophils (%) (Auto) 0.4 % Basophils (%) (Auto) 0.1 % Neutrophils # (Auto) 7.72 K/uL (1.4-6.5) Lymphocytes # (Auto) 1.39 K/uL (1.2-3.4) Monocytes # (Auto) 0.93 K/uL (0.11-0.59) Eosinophils # (Auto) 0.04 K/uL (0-0.5) Basophils # (Auto) 0.01 K/uL (0-0.2) RDW Standard Deviation 58.4 fL (36.4-46.3) RDW Coefficient of Variation 17.0 % (11.5-14.5) Immature Granulocyte % (Auto) 1.0 % Immature Granulocyte # (Auto) 0.10 K/uL (0.00-0.02) Prothrombin Time 55.7 SECONDS (9.0-12.0) Prothromb Time International Ratio 4.9 (0.9-1.1) Activated Partial Thromboplast Time 46.3 SECONDS (21.0-31.0) Partial Thromboplastin Ratio 1.8 Anion Gap 6.0 mmol/L (3-11) Est Creatinine Clear Calc Drug Dose 124.9 ml/min Estimated GFR () 124.1 Estimated GFR (Non- 107.1 BUN/Creatinine Ratio 25.1 (10-20) Calcium Level 9.9 mg/dl (8.5-10.1) Total Creatine Kinase 27 U/L (39-308) Creatine Kinase MB 2.0 ng/ml (0.5-3.6) Creatine Kinase MB Ratio 7.4 (0-3.0) Troponin I < 0.015 ng/ml (0-0.045) Labs reviewed by ED physician. Medications Administered Medications (Trade) Dose Ordered Sig/Elidia Route Start Time Stop Time Status Last Admin Dose Admin Sodium Chloride 1,000 ml @ 50 mls/hr Q20H IV 07/02/17 09:28 08/01/17 09:27 07/02/17 10:02 50 MLS/HR Metoprolol Tartrate (Lopressor Iv) 15 mg NOW STAT IV 07/02/17 11:25 07/02/17 11:26 DC 07/02/17 11:49 15 MG ECG Indication: altered mental status Rate (beats per minute): 95 Rhythm: normal sinus Findings: no acute ischemic change, no ectopy ED Course 0923: Past medical records reviewed. The patient was evaluated in room B7. A complete history and physical examination was performed. 0928: Ordered Sodium Chloride 1000 ml @ 50 mls/hr IV. 1125: Ordered Lopressor IV 15 mg IV. 1130: I reevaluated the patient and he is unchanged. I discussed the exam findings with the guards and I discussed the treatment plan. They verbalized complete understanding and agreement. The patient will be evaluated for further treatment. 1140: I discussed the patients case with YASMANY Oneal. She is going to evaluate the patient for further treatment. Medical Decision Differential diagnosis: Etiologies such as metabolic, infection, hypo/hyperglycemia, electrolyte abnormalities, cardiac sources, intracerebral event, toxicologic, neurologic, as well as others were entertained. This is a 62-year-old male who presents emergency department with altered mental status. The patient can normally talk however he has not talking upon arrival to the emergency department. He has a history of lung cancer with metastases to the brain. In addition the patient is hypertensive. He was sent for CAT scan of the head. The patient was given Lopressor for his blood pressure. He has a normal CBC normal renal profile normal liver profile normal cardiac enzymes normal EKG. Based on these findings I did discuss the case with the hospitalist service who agreed to admit the patient. Patient and caretakers were in agreement with the treatment plan. Medication Reconcilliation Current Medication List: was personally reviewed by me Blood Pressure Screening Patient's blood pressure: Elevated blood pressure Blood pressure disposition: Referred to PCP Consults Time Called: 1138 Consulting Physician: YASMANY Oneal Returned Call: 1140 I discussed the patients case with YASMANY Oneal. She is going to evaluate the patient for further treatment. Impression Primary Impression: Altered mental status Scribe Attestation The scribe's documentation has been prepared under my direction and personally reviewed by me in its entirety. I confirm that the note above accurately reflects all work, treatment, procedures, and medical decision making performed by me. Departure Information Dispostion Being Evaluated By Hospitalist Referrals Rito ROSA (PCP) Problem Qualifiers Primary Impression: Altered mental status Altered mental status type: unspecified Qualified Codes: R41.82 - Altered mental status, unspecified
--- NOTE | 2017-07-02 09:56 | DIAGNOSTIC IMAGING REPORT ---
CHEST ONE VIEW PORTABLE CLINICAL HISTORY: Stroke mental status change COMPARISON STUDY: 03/18/2017 FINDINGS: Lungs remain clear. Central catheter remains in superior vena cava. Diaphragms are smooth. IMPRESSION: No acute process. The above report was generated using voice recognition software. It may contain grammatical, syntax or spelling errors. Electronically signed by: See Garcia M.D. 07/02/2017 9:55 AM Dictated Date/Time: 07/02/2017 9:55 AM
[2017-07-02 10:09] LABS: BASO % 0.1 %; BASO ABS # 0.01 K/uL (0-0.2); COMPLETE YES; EOS % 0.4 %; HEMATOCRIT 37.7 % (42-52); LYMPH % 13.6 %; LYMPH ABS # 1.39 K/uL (1.2-3.4); MEAN CELL VOLUME 93.1 fL (80-100); MEAN CORPUSCULAR HEMOGLOBIN 34.6 pg (25-34); MEAN CORPUSCULAR HGB CONC 37.1 g/dl (32-36); MEAN PLATELET VOLUME 9.2 fL (7.4-10.4); MONO % 9.1 %; NEUT % 75.8 %; PLATELET COUNT 263 K/uL (130-400); RED BLOOD COUNT 4.05 M/uL (4.7-6.1); WHITE BLOOD COUNT 10.19 K/uL (4.8-10.8)
--- NOTE | 2017-07-02 10:16 | DIAGNOSTIC IMAGING REPORT ---
CT SCAN OF THE BRAIN WITHOUT IV CONTRAST CLINICAL HISTORY: Change in mental status. Stroke like symptoms. History of metastatic lung cancer. COMPARISON STUDY: MRI of the brain from 611 dated 12/12/2016. TECHNIQUE: Unenhanced axial CT scan of the brain is performed from the vertex to the skull base. CT DOSE: 788.63 mGycm FINDINGS: Brain parenchyma: There are age-related involutional changes noting mild subcortical and periventricular microangiopathic change. There is no hemorrhage, mass effect, or evidence of acute territorial ischemia by CT criteria. Grimaldo-white matter is preserved. No extra-axial fluid collection is seen. Ventricles, sulci, cisterns: Prominent secondary to involutional change. Intracranial vasculature: There is atherosclerotic calcification of the cavernous carotid and vertebral arteries. Calvarium: Unremarkable. Sinuses and mastoids: The visualized paranasal sinuses are clear. The mastoid air cells are well pneumatized. Orbits: The bony orbits are grossly intact. IMPRESSION: 1. There is no hemorrhage, mass effect, or evidence of acute territorial ischemia by CT criteria. 2. Intracranial metastases seen by MRI on 12/12/[address]. Electronically signed by: Morris Arreola M.D. 07/02/2017 10:15 AM Dictated Date/Time: 07/02/2017 10:11 AM
[2017-07-02 10:24] LABS: INR 4.9 (0.9-1.1); PARTIAL THROMBOPLASTIN RATIO 1.8; PROTHROMBIN TIME (PATIENT) 55.7 SECONDS (9.0-12.0)
[2017-07-02 10:28] LABS: BLOOD UREA NITROGEN 16 mg/dl (7-18); BUN/CREATININE RATIO 25.1 (10-20); CALCIUM 9.9 mg/dl (8.5-10.1); CARBON DIOXIDE 31 mmol/L (21-32); CHLORIDE 96 mmol/L (98-107); CREATININE 0.63 mg/dl (0.60-1.40); GLUCOSE 128 mg/dl (70-99); POTASSIUM 3.6 mmol/L (3.5-5.1); SODIUM 133 mmol/L (136-145)
[2017-07-02 10:33] LABS: CKMB/CK RATIO 7.4 (0-3.0)
[2017-07-02] MEDS ORDERED: METOPROLOL TARTRATE 1 MG/ML VIAL IV STA (11:25)
[2017-07-02] MEDS ORDERED: ONDANSETRON INJ 2 MG/ML 2 ML VIAL IV PRN (12:15)
[2017-07-02] MEDS ORDERED: ACETAMINOPHEN 325 MG TAB PO PRN (12:15)
[2017-07-02] MEDS ORDERED: GLUCAGON FOR INJ 1 MG VIAL SQ PRN (12:15)
[2017-07-02] MEDS ORDERED: DEXTROSE 50% 50 ML SYR IV PRN (12:15)
[2017-07-02] MEDS ORDERED: GLUCOSE 10 TABS/TUBE PO PRN (12:15)
[2017-07-02] MEDS ORDERED: MAGNESIUM HYDROXIDE SUSP 30 ML UDC PO PRN (12:15)
[2017-07-02] MEDS ORDERED: ALBUTEROL HFA 8 GM INHALER INH PRN (12:15)
[2017-07-02] MEDS ORDERED: GLUCOSE 40% GEL 15 GM TUBE PO PRN (12:15)
--- NOTE | 2017-07-02 12:39 | History and Physical ---
History & Physical Date & Time of Service: Jul 02, 2017 at 12:19 Chief Complaint: Altered Mental Status Primary Care Physician: Rito ROSA History of Present Illness Source: patient, clinic records 62 y/o M who was brought to the ED for progressive AMS over the last few days. Pt cannot outline his hx, but one of the guards present is familiar with him. He states that pt has been getting progressively worse over the last few days. He has been in a wheelchair for the last few weeks. Notes from the facility report that the wheelchair attendant noted worsening weakness and AMS. Pt does answer some yes/no questions. Pt denies fever, SOB, chest pain, abd pain, n/v/c/d, LE pain or swelling. Denies eating over the last few days, but cannot tell me why. He does admit to lack of appetite. Pt is reportedly on daily dexamethasone for n/v related to current chemo. Per records, pt has lung cancer with brain mets. His last chemo was 1 month ago. He has a port in place. Brain mets were reported as surgically removed from an H&P from 02/2017. Per EMR, pt takes oxycodone 5mg IR, 3 capsules QID. It appears he has not been taking his 2 midday doses since 06/26, but takes the AM and HS dose. He also takes oxycodone ER 10mg, 2 tabs BID and does appear to have taken those doses. Pt currently denies pain. Guards state that he has been following some commands and speaking some, but then will suddenly stop doing either and just stare ahead. Apparently his baseline prior was normal mentation. Past Medical/Surgical History Lung cancer with brain mets, s/p brain mets excision Current chemo, last dose approx 1 month ago Hx of PE, dx 02/2017, on coumadin DM Hyperlipidemia Hx of Hep C Family History Family history was reviewed; no changes noted. 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 of Systems Reviewed and otherwise neg Physical Exam Vital Signs Date Time Temp Pulse Resp B/P (MAP) Pulse Ox O2 Delivery O2 Flow Rate FiO2 07/02/17 11:49 88 185/125 07/02/17 11:14 84 14 191/126 94 Room Air 07/02/17 10:53 92 18 175/136 94 Room Air 07/02/17 09:25 103 07/02/17 09:25 96 Room Air 07/02/17 09:25 36.4 98 18 168/118 96 Room Air General Appearance: WD/WN, no apparent distress Head: normocephalic, atraumatic Eyes: normal inspection, PERRL, EOMI Respiratory/Chest: normal breath sounds, no respiratory distress Cardiovascular: regular rate, rhythm, no edema Abdomen/GI: non tender, soft Extremities/Musculoskelatal: no calf tenderness, no pedal edema Neurologic/Psych: alert (opens eyes on mention of name, answers yes/no questions at times, follows some simple commands but not others), + pertinent finding (will lift both legs off of bed, but no strength against resistance, 5/ 5 geological technician strength b/l, answers in a mumble for location and finally says "mental institution", answers "[place]" for state but cannot answer city, cannot answer questions about date or where he lives currently) Skin: normal color, warm/dry Diagnostics Laboratory Results Results Past 24 Hours Test 07/02/17 09:28 07/02/17 09:46 07/02/17 09:50 Range/Units Bedside Prothrombin Time INR 4.7 0.9-1.1 Bedside Glucose 130 70-99 mg/dl White Blood Count 10.19 4.8-10.8 K/uL Red Blood Count 4.05 4.7-6.1 M/uL Hemoglobin 14.0 14.0-18.0 g/dL Hematocrit 37.7 42-52 % Mean Corpuscular Volume 93.1 80-100 fL Mean Corpuscular Hemoglobin 34.6 25-34 pg Mean Corpuscular Hemoglobin Concent 37.1 32-36 g/dl Platelet Count 263 130-400 K/uL Mean Platelet Volume 9.2 7.4-10.4 fL Neutrophils (%) (Auto) 75.8 % Lymphocytes (%) (Auto) 13.6 % Monocytes (%) (Auto) 9.1 % Eosinophils (%) (Auto) 0.4 % Basophils (%) (Auto) 0.1 % Neutrophils # (Auto) 7.72 1.4-6.5 K/uL Lymphocytes # (Auto) 1.39 1.2-3.4 K/uL Monocytes # (Auto) 0.93 0.11-0.59 K/uL Eosinophils # (Auto) 0.04 0-0.5 K/uL Basophils # (Auto) 0.01 0-0.2 K/uL RDW Standard Deviation 58.4 36.4-46.3 fL RDW Coefficient of Variation 17.0 11.5-14.5 % Immature Granulocyte % (Auto) 1.0 % Immature Granulocyte # (Auto) 0.10 0.00-0.02 K/uL Prothrombin Time 55.7 9.0-12.0 SECONDS Prothromb Time International Ratio 4.9 0.9-1.1 Activated Partial Thromboplast Time 46.3 21.0-31.0 SECONDS Partial Thromboplastin Ratio 1.8 Sodium Level 133 136-145 mmol/L Potassium Level 3.6 3.5-5.1 mmol/L Chloride Level 96 98-107 mmol/L Carbon Dioxide Level 31 21-32 mmol/L Anion Gap 6.0 3-11 mmol/L Blood Urea Nitrogen 16 7-18 mg/dl Creatinine 0.63 0.60-1.40 mg/dl Est Creatinine Clear Calc Drug Dose 124.9 ml/min Estimated GFR () 124.1 Estimated GFR (Non- 107.1 BUN/Creatinine Ratio 25.1 10-20 Random Glucose 128 70-99 mg/dl Calcium Level 9.9 8.5-10.1 mg/dl Total Creatine Kinase 27 39-308 U/L Creatine Kinase MB 2.0 0.5-3.6 ng/ml Creatine Kinase MB Ratio 7.4 0-3.0 Troponin I < 0.015 0-0.045 ng/ml Diagnostic Radiology CT head neg for acute, also neg for mets noted on MRI 02/2017 CXR neg for acute Normal EKG Impression Assessment and Plan 62 y/o M who was admitted on 07/02 for AMS. AMS: Uncertain etiology, concern for infection vs return of brain mets vs HTN urgency seem most likely CBC with mild anemia but otherwise WNL PRP with mild hypoNa, but otherwise WNL BS WNL Trop neg x1 CT head neg for acute issues or mets CXR neg for acute UA pending, If UA is neg BP initially elevated in the 190s and improving s/p metoprolol, monitor sx with improved BP INR elevated on coumadin, which could be playing a role as well. Seems less likely given only mild elevation, but will monitor Holding oxy dosing for now TSH, B12, folate, Lyme pending Will need to pursue MRI for possible cause of AMS if UA, TSH, B12, folate, Lyme neg Hypertensive urgency: metoprolol PRN No noted hx of HTN Hx of PE: elevated INR on coumadin Hold and monitor Likely elevated in the setting of decreased PO intake DM: Monitor on SSI until taking PO Then can return to home insulin dosing A1c pending (12.1 02/2017) Lung cancer with brain mets: last chemo was 1 month ago Nursing notes indicate he is on a break current Follows with [facility] Port in place CT neg for mets If UA is neg, will need to pursue MRI for possible cause of AMS Hx of chronic n/v: continue home dexamethasone dosing ??COPD: continue inhalers as at home No current exacerbation Other: Unable to discuss code status and no documentation with pt regarding this NPO with gentle IVF until mentation improves Holding DVT proph given supratherapeutic on coumadin Level of Care Telemetry VTE Prophylaxis VTE Risk Assessment Done? Y/N: Yes Risk Level: Low Given or contraindicated: Treatment not indicated
[2017-07-02 12:40] LABS: URINE APPEARANCE CLEAR (CLEAR); URINE BILIRUBIN NEG (NEG); URINE COLOR YELLOW; URINE NITRITE NEG (NEG); URINE PH 6.5 (4.5-7.5); UROBILINOGEN NEG (NEG); ZZUR CULT IF INDIC CLEAN CATCH NO
[2017-07-02] MEDS ORDERED: METOPROLOL TARTRATE 1 MG/ML VIAL IV PRN (12:45)
[2017-07-02 12:46] LABS: MANUAL MICROSCOPIC REQUIRED? NO; REVIEW REQ? NO
[2017-07-02] MEDS: SODIUM CHLORIDE 0.9% 1000ML 1,000 ML IV SCH (14:35)
[2017-07-02] MEDS: ALBUT/IPRATROP 3MG/0.5MG NEB 3 ML VIAL INH SCH ×3 (15:12→23:17)
[2017-07-02 15:13] LABS: LYME DISEASE AB IGG NEG (NEG); LYME DISEASE AB IGM NEG (NEG)
[2017-07-02] MEDS ORDERED: NURSING VERBAL MED ORDER ONE ×2 (15:45→21:30)
[2017-07-02] MEDS ORDERED: METOPROLOL TARTRATE 1 MG/ML VIAL IV ONE (15:45)
[2017-07-02] MEDS: INSULIN ASPART 100 UNITS/ML 3 ML PEN SC SCH ×2 (16:15→20:58)
[2017-07-02] MEDS ORDERED: CYANOCOBALAMIN 1000 MCG/ML VIAL IM SCH (16:30)
[2017-07-02] MEDS: METOPROLOL TARTRATE 1 MG/ML VIAL IV PRN (20:10)
[2017-07-02] MEDS ORDERED: LORAZEPAM 2 MG/ML 1 ML VIAL IV PRN (21:45)
--- NOTE | 2017-07-02 22:29 | DIAGNOSTIC IMAGING REPORT ---
ORBIT RADIOGRAPHS 3 VIEWS HISTORY: pre-MRI screening. COMPARISON: None. FINDINGS: There are no radiopaque foreign bodies identified within the orbits. IMPRESSION: No radiopaque foreign bodies identified within the orbits. Electronically signed by: Felix Karimi M.D. 07/02/2017 10:28 PM Dictated Date/Time: 07/02/2017 10:27 PM
--- NOTE | 2017-07-02 22:31 | DIAGNOSTIC IMAGING REPORT ---
KUB HISTORY: Generalized abdominal pain. Clearance for MRI COMPARISON: Abdomen and pelvis CT 03/18/2017. FINDINGS: The bowel gas pattern is unremarkable. There are no dilated loops of small bowel to suggest an obstruction. No renal calculi. No ureteral calculi. No pneumoperitoneum or pneumatosis. No metallic foreign bodies. Moderate stool within the colon. The tip of the patient's left Port-A-Cath terminates at the superior cavoatrial junction. IMPRESSION: Moderate stool within the colon. No metallic foreign bodies. Electronically signed by: Felix Karimi M.D. 07/02/2017 10:29 PM Dictated Date/Time: 07/02/2017 10:28 PM
[2017-07-02] MEDS ORDERED: GADAVIST IV PRN (23:45)
[2017-07-03] VITALS (17 sets, daily range): BP systolic 149–182; BP diastolic 95–117; PULSE 71–109; TEMP 36.4–36.7; O2SAT 90–99
[2017-07-03] MEDS: METOPROLOL TARTRATE 1 MG/ML VIAL IV PRN (00:53)
[2017-07-03] MEDS: ALBUT/IPRATROP 3MG/0.5MG NEB 3 ML VIAL INH SCH ×6 (03:37→23:17)
[2017-07-03] MEDS ORDERED: NURSING VERBAL MED ORDER ONE (05:30)
--- NOTE | 2017-07-03 06:50 | DIAGNOSTIC IMAGING REPORT ---
MRI OF THE BRAIN WITHOUT AND WITH IV CONTRAST CLINICAL HISTORY: Acute change in mental status. History of metastatic disease. Stroke like symptoms. COMPARISON STUDY: CT scan dated 07/02/2017, outside MRI the brain dated 12/12/2016 TECHNIQUE: MRI of the brain was performed from the vertex to the skull base utilizing various T1 and T2 weighted sequences. Following the IV administration of 7 mL of Gadavist contrast, additional enhanced images were obtained. FINDINGS: Sagittal T1, axial diffusion, proton density and T2 weighted axial, coronal FLAIR, and pre and post axial T1-weighted images were acquired. These were supplemented with post gadolinium coronal T1 weighted images. There is been interval decrease in the number of enhancing parenchymal nodules. There is a 5 mm enhancing lesion within the left parietal vertex, consistent with a metastatic focus. There is a punctate focus of enhancement within the right cerebellar hemisphere, consistent with an additional metastatic focus. Axial diffusion-weighted images reveal no evidence of acute or subacute infarction. There is no evidence of ventricular dilatation. Proton density T2-weighted and FLAIR images reveal diffuse increased T2 signal within the periventricular region. This could be a small vessel basis or related to old brain radiation. There is also increased T2 signal in the region the patient's presumed left parietal metastasis. There are no abnormal flow voids. There is diffuse increased leptomeningeal enhancement. This could be secondary to meningitis, metastatic disease, or perhaps secondary to prior radiation. IMPRESSION: 1. Interval decrease in the number of the metastatic foci 2. Interval development of diffuse leptomeningeal enhancement. This could be secondary to meningitis, metastatic disease, or perhaps secondary to prior radiation. Electronically signed by: Juanpablo Spence M.D. 07/03/2017 6:49 AM Dictated Date/Time: 07/03/2017 6:40 AM
[2017-07-03] MEDS: INSULIN ASPART 100 UNITS/ML 3 ML PEN SC SCH ×4 (07:00→21:00)
[2017-07-03] MEDS: METOPROLOL TARTRATE 1 MG/ML VIAL IV. SCH ×2 (08:14→12:44)
[2017-07-03] MEDS: DEXAMETHASONE 1 MG TAB PO SCH (08:16)
[2017-07-03] MEDS: SODIUM CHLORIDE 0.9% 1000ML 1,000 ML IV SCH (08:17)
[2017-07-03 08:18] LABS: INR 5.1 (0.9-1.1); PROTHROMBIN TIME (PATIENT) 58.5 SECONDS (9.0-12.0)
[2017-07-03] MEDS ORDERED: POLYETHYLENE (MIRALAX) 17 GM PACK PO PRN (08:30)
[2017-07-03 08:45] LABS: ESTIMATED AVERAGE GLUCOSE 128 mg/dl; HA1C FLAG Normal (Normal)
[2017-07-03] MEDS: ENALAPRILAT IV 1.25 MG in DEXTROSE 5% 25ML 25 ML IV SCH ×2 (10:22→21:07)
[2017-07-03] MEDS ORDERED: PHYTONADIONE INJ 2.5 MG in SODIUM CHLORIDE 0.9% 50ML 50 ML IV ONE (10:45)
[2017-07-03] MEDS: POLYETHYLENE (MIRALAX) 17 GM PACK PO SCH (12:38)
--- NOTE | 2017-07-03 17:27 | Progress Note ---
Subjective Date of Service: Jul 03, 2017. Subjective Awakens easilya few more words and a mumbled voice can tell me that he is in the [facility] cannot tell me the date or time denies any focal complaints does not appear to have any distress or laboring. Has a right-sided ptosis Problem List Medical Problems: (1) Abdominal pain Status: Acute (2) Altered mental status Status: Acute (3) Central chest pain Status: Acute (4) History of pulmonary embolus (PE) Status: Acute (5) Nausea & vomiting Status: Acute (6) Pulmonary embolus, right Status: Acute Review of Systems Constitutional: No fever, No chills, No weakness, No fatigue Respiratory: No cough, No sputum, No shortness of breath, No dyspnea on exertion Cardiac: No chest pain, No orthopnea, No PND, No edema Psychiatric: + depression symptoms, + anhedonism Objective Vital Signs Date Time Temp Pulse Resp B/P (MAP) Pulse Ox O2 Delivery O2 Flow Rate FiO2 07/03/17 07:06 84 14 93 Room Air 07/03/17 05:43 80 164/113 (130) 07/03/17 04:00 Room Air 07/03/17 03:37 71 14 91 Room Air 07/03/17 02:50 36.7 85 18 182/112 (135) 98 Room Air 07/03/17 01:50 73 162/104 (123) 07/03/17 01:22 166/117 (133) 07/03/17 00:53 85 192/119 07/03/17 00:01 Room Air 07/02/17 23:45 36.6 91 16 171/119 (136) 99 Room Air 07/02/17 21:29 78 16 98 Room Air 07/02/17 21:05 166/104 (124) 07/02/17 20:10 85 185/119 07/02/17 20:00 Room Air 07/02/17 19:27 36.5 86 16 189/138 (155) 96 Room Air 195/119 (144) 07/02/17 16:00 Room Air 07/02/17 15:57 84 208/112 07/02/17 15:26 36.5 82 16 203/114 (143) 98 Room Air 07/02/17 15:16 79 16 94 Room Air 07/02/17 14:36 70 181/120 9/7/17 13:30 178/118 (138) 07/02/17 13:12 76 20 171/122 97 07/02/17 13:02 76 20 171/122 97 Room Air 07/02/17 11:49 88 185/125 07/02/17 11:45 94 Room Air 07/02/17 11:14 84 14 191/126 94 Room Air 07/02/17 10:53 92 18 175/136 94 Room Air 07/02/17 09:25 103 07/02/17 09:25 96 Room Air 07/02/17 09:25 36.4 98 18 168/118 96 Room Air Physical Exam General Appearance: WD/WN, + mild distress Eyes: PERRL, + pertinent finding (right-sided ptosis) ENT: hearing grossly normal, pharynx normal Respiratory/Chest: chest non-tender, lungs clear, normal breath sounds Cardiovascular: regular rate, rhythm, no murmur Abdomen: normal bowel sounds, non tender, soft Extremities: no pedal edema, no calf tenderness Neurologic/Psychiatric: alert, + disoriented Laboratory Results Last 24 Hours Test 07/02/17 09:46 07/02/17 09:50 07/02/17 12:20 07/02/17 13:35 Bedside Prothrombin Time INR 4.7 Bedside Glucose 130 mg/dl White Blood Count 10.19 K/uL Red Blood Count 4.05 M/uL Hemoglobin 14.0 g/dL Hematocrit 37.7 % Mean Corpuscular Volume 93.1 fL Mean Corpuscular Hemoglobin 34.6 pg Mean Corpuscular Hemoglobin Concent 37.1 g/dl Platelet Count 263 K/uL Mean Platelet Volume 9.2 fL Neutrophils (%) (Auto) 75.8 % Lymphocytes (%) (Auto) 13.6 % Monocytes (%) (Auto) 9.1 % Eosinophils (%) (Auto) 0.4 % Basophils (%) (Auto) 0.1 % Neutrophils # (Auto) 7.72 K/uL Lymphocytes # (Auto) 1.39 K/uL Monocytes # (Auto) 0.93 K/uL Eosinophils # (Auto) 0.04 K/uL Basophils # (Auto) 0.01 K/uL RDW Standard Deviation 58.4 fL RDW Coefficient of Variation 17.0 % Immature Granulocyte % (Auto) 1.0 % Immature Granulocyte # (Auto) 0.10 K/uL Prothrombin Time 55.7 SECONDS Prothromb Time International Ratio 4.9 Activated Partial Thromboplast Time 46.3 SECONDS Partial Thromboplastin Ratio 1.8 Sodium Level 133 mmol/L Potassium Level 3.6 mmol/L Chloride Level 96 mmol/L Carbon Dioxide Level 31 mmol/L Anion Gap 6.0 mmol/L Blood Urea Nitrogen 16 mg/dl Creatinine 0.63 mg/dl Est Creatinine Clear Calc Drug Dose 124.9 ml/min Estimated GFR () 124.1 Estimated GFR (Non- 107.1 BUN/Creatinine Ratio 25.1 Random Glucose 128 mg/dl Calcium Level 9.9 mg/dl Total Creatine Kinase 27 U/L Creatine Kinase MB 2.0 ng/ml Creatine Kinase MB Ratio 7.4 Troponin I < 0.015 ng/ml Urine Color YELLOW Urine Appearance CLEAR Urine pH 6.5 Urine Specific Foss 1.020 Urine Protein NEG Urine Glucose (UA) 1+ Urine Ketones NEG Urine Occult Blood NEG Urine Nitrite NEG Urine Bilirubin NEG Urine Urobilinogen NEG Urine Leukocyte Esterase NEG Vitamin B12 Level 440 pg/mL Folate 19.58 ng/mL Thyroid Stimulating Hormone (TSH) 0.399 uIu/ml Lyme Disease IgG Antibody NEG Lyme Disease IgM Antibody NEG Test 07/02/17 20:15 07/03/17 07:52 Bedside Glucose 108 mg/dl Prothrombin Time 58.5 SECONDS Prothromb Time International Ratio 5.1 Assessment and Plan 62 y/o M who was admitted on 07/02 for encephalopathy undetermined cause. Encephalopathy infection vs return of brain mets vs HTN urgency seem most likely CT head neg for acute issues or mets, CXR neg for acute UA pending, hypertensive urgency, BP initially elevated in the 190s and improving s/p metoprolol, monitor sx with improved BP INR elevated on coumadin, 5.1, low-dose vitamin K given Hx of PE: elevated INR on coumadin Hold and monitor Likely elevated in the setting of decreased PO intake DM: Monitor on SSI Chronic n/v: continue home dexamethasone dosing COPD: No current exacerbation
[2017-07-03] MEDS ORDERED: METOPROLOL TARTRATE 1 MG/ML VIAL IV PRN (17:30)
[2017-07-03] MEDS: METOPROLOL TARTRATE 25 MG TAB PO SCH (21:11)
[2017-07-04] VITALS (16 sets, daily range): BP systolic 124–191; BP diastolic 77–117; PULSE 79–116; TEMP 36.4–36.8; O2SAT 93–98
[2017-07-04] MEDS: ALBUT/IPRATROP 3MG/0.5MG NEB 3 ML VIAL INH SCH ×6 (03:21→23:20)
[2017-07-04] MEDS: SODIUM CHLORIDE 0.9% 1000ML 1,000 ML IV SCH (03:48)
[2017-07-04] MEDS: HydrALAZINE HCL 20 MG/ML VIAL IV. PRN ×2 (03:48→19:33)
[2017-07-04 05:19] LABS: INR 1.3 (0.9-1.1); PROTHROMBIN TIME (PATIENT) 13.6 SECONDS (9.0-12.0)
[2017-07-04] MEDS: INSULIN ASPART 100 UNITS/ML 3 ML PEN SC SCH ×4 (07:00→20:24)
[2017-07-04 08:10] LABS: BASO % 0.2 %; BASO ABS # 0.03 K/uL (0-0.2); COMPLETE YES; EOS % 0.6 %; HEMATOCRIT 39.1 % (42-52); IG% 1.1 %; LYMPH ABS # 2.55 K/uL (1.2-3.4); MEAN CELL VOLUME 94.7 fL (80-100); MEAN CORPUSCULAR HEMOGLOBIN 33.7 pg (25-34); MEAN CORPUSCULAR HGB CONC 35.5 g/dl (32-36); MEAN PLATELET VOLUME 9.3 fL (7.4-10.4); MONO % 11.3 %; NEUT % 65.8 %; PLATELET COUNT 291 K/uL (130-400); RED BLOOD COUNT 4.13 M/uL (4.7-6.1); WHITE BLOOD COUNT 12.14 K/uL (4.8-10.8)
[2017-07-04] MEDS: POLYETHYLENE (MIRALAX) 17 GM PACK PO SCH (08:27)
[2017-07-04] MEDS: DEXAMETHASONE 1 MG TAB PO SCH (08:27)
[2017-07-04] MEDS: METOPROLOL TARTRATE 25 MG TAB PO SCH ×2 (08:27→20:23)
[2017-07-04 08:48] LABS: BUN/CREATININE RATIO 14.8 (10-20); CALCIUM 9.6 mg/dl (8.5-10.1); CREATININE 0.81 mg/dl (0.60-1.40); POTASSIUM 3.2 mmol/L (3.5-5.1)
--- NOTE | 2017-07-04 14:36 | Progress Note ---
Subjective Date of Service: Jul 04, 2017. Subjective This patient is more awake and appropriate today exact origin of his encephalopathy is not clear, could he have had surreptitious medication use the long-term possibly. He is not actively eating today as he feels his food is poisoned he does notice at the hospital no his right ptosis is improved over yesterday Problem List Medical Problems: (1) Abdominal pain Status: Acute (2) Altered mental status Status: Acute (3) Central chest pain Status: Acute (4) History of pulmonary embolus (PE) Status: Acute (5) Nausea & vomiting Status: Acute (6) Pulmonary embolus, right Status: Acute Review of Systems Constitutional: No fever, No chills Respiratory: No cough, No shortness of breath Cardiac: No chest pain, No edema Objective Vital Signs Date Time Temp Pulse Resp B/P (MAP) Pulse Ox O2 Delivery O2 Flow Rate FiO2 07/04/17 07:06 111 16 98 Room Air 07/04/17 04:15 84 132/88 (103) 07/04/17 04:00 Room Air 07/04/17 03:23 36.4 97 19 160/117 (131) 98 Room Air 07/03/17 23:59 98 Room Air 07/03/17 23:34 36.4 99 16 152/102 (119) 98 Room Air 07/03/17 23:17 109 16 93 Room Air 07/03/17 20:09 100 16 90 Room Air 07/03/17 20:00 Room Air 07/03/17 19:40 36.6 98 18 155/99 (117) 98 Room Air 07/03/17 16:00 Room Air 07/03/17 15:43 84 16 97 Room Air 07/03/17 15:19 36.7 100 18 149/95 (113) 96 Room Air 07/03/17 12:44 91 182/115 07/03/17 12:00 Room Air 07/03/17 11:30 36.5 91 20 182/115 (137) 95 Room Air 07/03/17 11:26 81 14 94 Room Air 07/03/17 10:22 83 174/113 (133) 07/03/17 08:14 88 174/111 07/03/17 08:00 Room Air 07/03/17 07:44 36.4 87 20 176/109 (131) 99 Physical Exam General Appearance: WD/WN, + mild distress Eyes: PERRL, EOMI (less ptosis only slight on the right) ENT: hearing grossly normal, pharynx normal Respiratory/Chest: chest non-tender, lungs clear, normal breath sounds Cardiovascular: regular rate, rhythm, no murmur Abdomen: normal bowel sounds, non tender, soft Extremities: no pedal edema, no calf tenderness Laboratory Results Last 24 Hours Test 07/03/17 07:52 07/03/17 08:11 07/03/17 11:28 07/03/17 16:10 Prothrombin Time 58.5 SECONDS Prothromb Time International Ratio 5.1 Estimated Average Glucose 128 mg/dl Hemoglobin A1c 6.1 % Bedside Glucose 107 mg/dl 122 mg/dl 179 mg/dl Test 07/03/17 20:10 07/03/17 21:03 07/04/17 04:51 07/04/17 06:44 Bedside Glucose 114 mg/dl 117 mg/dl 120 mg/dl Prothrombin Time 13.6 SECONDS Prothromb Time International Ratio 1.3 Assessment and Plan 62 y/o M who was admitted on 07/02 for encephalopathy undetermined cause. Encephalopathy this has cleared with just hydration and support CT head neg for acute issues or mets, CXR neg for acute UA negative so far, hypertensive urgency, BP initially elevated in the 190s but this was brief continues to improve INR elevated on coumadin, 5.1, low-dose vitamin K given drastic reduction of INR will resume Coumadin Hx of PE: elevated INR on coumadin DM: Monitor on SSI Chronic n/v: This is resolved we'll continue home dexamethasone dosing COPD: No current exacerbation
[2017-07-04] MEDS: POTASSIUM CHLORIDE 20 MEQ TABCR PO SCH (20:23)
[2017-07-04] MEDS ORDERED: WARFARIN SOD 5 MG TAB PO SCH (21:00)
[2017-07-05] MEDS: SODIUM CHLORIDE 0.9% 1000ML 1,000 ML IV SCH (00:37)
[2017-07-05] MEDS: ALBUT/IPRATROP 3MG/0.5MG NEB 3 ML VIAL INH SCH ×4 (03:35→15:08)
[2017-07-05 03:49] VITALS: BP 146/97; PULSE 106; TEMP 36.5; O2SAT 94
[2017-07-05 05:58] LABS: MEAN CELL VOLUME 94.7 fL (80-100); MEAN CORPUSCULAR HEMOGLOBIN 32.6 pg (25-34); MEAN CORPUSCULAR HGB CONC 34.4 g/dl (32-36); MEAN PLATELET VOLUME 9.3 fL (7.4-10.4); PLATELET COUNT 243 K/uL (130-400); WHITE BLOOD COUNT 10.04 K/uL (4.8-10.8)
[2017-07-05 06:11] LABS: INR 1.2 (0.9-1.1); PROTHROMBIN TIME (PATIENT) 12.6 SECONDS (9.0-12.0)
[2017-07-05 06:36] LABS: BUN/CREATININE RATIO 20.2 (10-20); CALCIUM 9.1 mg/dl (8.5-10.1); CREATININE 0.62 mg/dl (0.60-1.40); POTASSIUM 3.3 mmol/L (3.5-5.1)
[2017-07-05 07:22] VITALS: PULSE 94; O2SAT 96
[2017-07-05 07:38] VITALS: BP 178/84; PULSE 94; TEMP 36.6; O2SAT 96
[2017-07-05] MEDS: POTASSIUM CHLORIDE 20 MEQ TABCR PO SCH (08:09)
[2017-07-05] MEDS: DEXAMETHASONE 1 MG TAB PO SCH (08:09)
[2017-07-05] MEDS: METOPROLOL TARTRATE 25 MG TAB PO SCH (08:10)
[2017-07-05] MEDS: POLYETHYLENE (MIRALAX) 17 GM PACK PO SCH (08:10)
[2017-07-05] MEDS: INSULIN ASPART 100 UNITS/ML 3 ML PEN SC SCH ×2 (08:16→12:15)
[2017-07-05] MEDS ORDERED: DXM1 PO (08:51)
[2017-07-05] MEDS ORDERED: LPR25 PO (08:51)
[2017-07-05] MEDS ORDERED: MCRK20 PO (08:51)
[2017-07-05] MEDS ORDERED: MRLP17 PO (08:51)
--- NOTE | 2017-07-05 08:52 | Discharge Instructions ---
Discharge Instructions Date of Service Jul 05, 2017. Admission Reason for Admission: Altered Mental Status Discharge Discharge Diagnosis / Problem: hypertensive urgency Discharge Goals Goal(s): Diagnostic testing, Therapeutic intervention Activity Recommendations Activity Limitations: resume your previous activity . Current Hospital Diet Patient's current hospital diet: Regular Diet Discharge Diet Recommended Diet: Regular Diet Pending Studies Studies pending at discharge: no Laboratory Results Hemoglobin A1c Test 07/03/17 07:52 Range/Units Estimated Average Glucose 128 mg/dl Hemoglobin A1c 6.1 H 4.5-5.6 % Medical Emergencies . Who to Call and When: Medical Emergencies: If at any time you feel your situation is an emergency, please call 911 immediately. . Non-Emergent Contact Non-Emergency issues call your: Specialist (prision physician) Call Non-Emergent contact if: temperature is above 101, your pain is unusual for you . . "Provider Documentation" section prepared by Jeremy Zepeda. . VTE Core Measure Inpt VTE Proph given/why not?: Treatment not indicated
[2017-07-05 11:15] VITALS: PULSE 106; O2SAT 99
[2017-07-05 11:35] VITALS: BP 146/81; PULSE 117; TEMP 36.6; O2SAT 98
[2017-07-05 12:01] VITALS: BP 178/84; PULSE 106; TEMP 36.6; O2SAT 99
--- NOTE | 2017-07-05 14:24 | Discharge Summary ---
Discharge Summary Date of Service Jul 05, 2017. Discharge Summary Admission Date: Jul 02, 2017 at 12:13 Discharge Date: Jul 05, 2017 Discharge Disposition: Home Principal Diagnosis: encephalopahty resolved Medication Reconciliation New Medications: Dexamethasone (Dexamethasone) 1 Mg Tab 1 MG PO DAILY, #30 TAB Metoprolol Tartrate (Lopressor) 25 Mg Tab 25 MG PO BID, #60 TAB 6 Refills Polyethylene (Miralax) 17 Gm Pow 17 GM PO DAILY, #30 DOSE Potassium Chloride (Klor-Con M20) 20 Meq Tabcr 20 MEQ PO BID, #60 DOSE Continued Medications: Albuterol Hfa (Ventolin Hfa) 200 Puffs/31228 Mcg Aers 2 PUFFS INH QID PRN for RN, #1 INHALER Insulin Human Regular (Humulin R) 100 Units/Ml Susp SQ UD INJECT PER S.S. 150-200=2 201-250=4 251-300=6 301-350=8 351-400=10 401-450=12 >450 CALL Ipratropium-Albuterol (Duoneb) 3 Ml Nebu 1 TREATMENT INH Q4H, INHA Warfarin Sod (Jantoven) 4 Mg Tab 4 MG PO HS TOTAL DOSE=9MG Warfarin Sod (Jantoven) 5 Mg Tab 5 MG PO HS TOTAL DOSE=9MG Discharge Exam Review of Systems: Constitutional: No fever, No chills Respiratory: No cough, No wheezing Cardiovascular: No chest pain, No orthopnea, No PND Abdomen: No pain, No nausea, No vomiting Physical Exam: General Appearance: WD/WN, no apparent distress Respiratory/Chest: chest non-tender, lungs clear, normal breath sounds Cardiovascular: regular rate, rhythm, no murmur Abdomen / GI: normal bowel sounds, non tender, soft Extremities: no pedal edema, normal range of motion Neurologic/Psychiatric: alert, oriented x 3 Hospital Course 62 y/o M who was admitted on 07/02 for encephalopathy undetermined cause. Encephalopathy this has cleared with just hydration and support CT head neg for acute issues or mets, CXR neg for acute UA negative so far, hypertensive urgency, BP initially elevated in the 190s but this was brief continues to improve, resume usual bp regime but increase metoprolol if needed INR elevated on coumadin, 5.1, low-dose vitamin K given drastic reduction of INR will resume Coumadin Hx of PE: elevated INR on coumadin DM: Monitor on SSI Chronic n/v: This is resolved we'll continue home dexamethasone dosing COPD: No current exacerbation Total Time Spent: Greater than 30 minutes This includes examination of the patient, discharge planning, medication reconciliation, and communication with other providers. Discharge Instructions Please refer to the electronic Patient Visit Report (Discharge Instructions) for additional information.
== END 2017-07-05 15:20 | DRG 304 ==
LOC: EDBD 09:14 → C.EDB 09:15 → C.2T 12:13 → ENRESERV 12:27 → C.MS2W 07-04 09:24
PROVIDERS: ADMIT Family Medicine; ATTEND Internal Medicine
DX: I16.0 Hypertensive urgency (principal); G93.40 Encephalopathy, unspecified; C34.90 Malignant neoplasm of unspecified part of unspecified bronchus or lung; E11.9 Type 2 diabetes mellitus without complications; R11.2 Nausea with vomiting, unspecified; J44.9 Chronic obstructive pulmonary disease, unspecified; Z79.01 Long term (current) use of anticoagulants; Z79.4 Long term (current) use of insulin; Z79.891 Long term (current) use of opiate analgesic; Z79.52 Long term (current) use of systemic steroids; Z85.841 Personal history of malignant neoplasm of brain; Z86.711 Personal history of pulmonary embolism; Z87.891 Personal history of nicotine dependence; Z80.1 Family history of malignant neoplasm of trachea, bronchus and lung; Z82.3 Family history of stroke; Z82.49 Family history of ischemic heart disease and other diseases of the circulatory system; Z80.0 Family history of malignant neoplasm of digestive organs